=== PATIENT | male | born 1960 | race Caucasian/White ===

== ENCOUNTER 2024-11-07 07:24 | Outpatient (OUT) | payer BC, SELFPAY ==
--- NOTE | 2024-11-07 07:30 | CA_ITS ---
Patient Name: MALISSA HANDY MR#: [id number] : 1960 Exam Date: 11/07/2024 Ordering Doctor: BRITTANY ALFARO ECHOCARDIOGRAM REPORT PROCEDURE: CA ECHO DOPPLER COMPLETE INDICATIONS: Exertional dyspnea, splinter hemorrhage, hypertension COMPARISON: None. DESCRIPTION: COMPLETE ECHOCARDIOGRAM Real-time transthoracic echocardiography with 2D, M-mode, spectral and color flow Doppler performed. QUALITY: Technical quality was good. LEFT VENTRICLE: Normal chamber size. Normal left ventricular wall thickness. LV EF: Global left ventricular systolic function is normal; visually estimated ejection fraction is 55 to 60%. No obvious wall motion abnormalities. DIASTOLIC: Normal diastolic function. ATRIAL SEPTUM: Visually appears intact. LEFT ATRIUM: Normal chamber size. RIGHT ATRIUM: Normal chamber size. RIGHT VENTRICLE: Normal chamber size. Normal right ventricular systolic function. TRICUSPID VALVE: Normal mobility and thickness. No stenosis with trivial regurgitation. No evidence of pulmonary hypertension. RVSP 33 mmHg MITRAL VALVE: Normal mobility and thickness. No evidence of mitral valve stenosis. There is no mitral annular calcification. No mitral regurgitation. AORTIC VALVE: Normal trileaflet appearance. No visible sclerosis. Normal leaflet mobility. No evidence of aortic valve stenosis. No aortic regurgitation. AORTIC ROOT: Normal diameter and appearance. Ascending aorta is normal in size. PULMONIC VALVE: Normal thickness and mobility. No stenosis. No regurgitation. PERICARDIUM: No evidence of pericardial effusion. IVC: Collapses with inspirations. IVC is dilated (2.4 cm). CONCLUSION: 1. Global left ventricular systolic function is normal; visually estimated ejection fraction is 55 to 60% 2. Normal right ventricular size and systolic function 3. Normal diastolic function 4. The left atrium is normal in size 5. No significant valvular abnormalities Adult Echocardiography Procedure Report Left Ventricle LVEDD (3.7 - 5.6 cm): 4.16 cm LVESD (2.2 - 4.0 cm): 2.89 cm LVIVS thickness (0.6 - 1.2 cm): 0.87 cm LVPW thickness (0.5 - 1.0 cm): 1.00 cm e': 0.14 m/s E - e': 5.89 LVOT Max Gradient: 4.69 mm[Hg] LVOT Area (cm2): 1.08 m/s Peak Velocity (LVOT): 1.08 m/s Mean Velocity (LVOT): 0.73 m/s LVOT Diameter 2.05 cm Left Atrium LA Volume Index (2D A2C): 27.10 ml/m2 Left Atrium Systolic Dimension: 3.47 cm Mitral Valve MV E to A Ratio: 0.82 Mitral Valve A-Wave Peak Velocity: 0.97 m/s Mitral Valve E-Wave Peak Velocity: 0.80 m/s Right Ventricle Aorta AO Root Diam: 3.42 cm Ascending Ao Diam: 2.96 cm Aortic Valve AoV Area (Peak Beto): 2.83 cm2, 2.83 cm2 AoV Area (VTI): 2.45 cm2, 2.45 cm2 Peak Velocity(Antegrade Flow): 1.26 m/s Peak Gradient(Antegrade Flow): 6.37 mm[Hg] Mean Velocity(Antegrade Flow): 0.86 m/s Mean Gradient(Antegrade Flow): 3.47 mm[Hg] Velocity Time Integral: 27.44 cm Tricuspid Valve Peak Velocity (Regurgitant Flow): 2.51 m/s Pulmonic Valve Mean Gradient: 1.83 mm[Hg] Mean Velocity: 0.64 m/s Peak Velocity: 0.96 m/s, 1.03 m/s Peak Gradient: 4.26 mm[Hg], 3.68 mm[Hg] Right Atrium Right Atrium Systolic Pressure: 46.45 ml, 46.45 ml Dictated by: Betzy Villalobos M.D. on 11/07/2024 at 13:30 Approved by: Betzy Villalobos M.D. on 11/07/2024 at 13:32
== END 2024-11-07 07:25 | disposition home or self-care (01) ==
LOC: CARD 07:24
PROVIDERS: PCP Family Medicine; Visit Provider Family Medicine
DX: R06.09 Other forms of dyspnea (principal); L60.8 Other nail disorders; E78.2 Mixed hyperlipidemia; E03.8 Other specified hypothyroidism; E07.81 Sick-euthyroid syndrome; K59.89 Other specified functional intestinal disorders; E23.3 Hypothalamic dysfunction, not elsewhere classified; E27.9 Disorder of adrenal gland, unspecified; E27.49 Other adrenocortical insufficiency; J45.40 Moderate persistent asthma, uncomplicated
CPT/HCPCS: 93306

== ENCOUNTER 2025-06-27 23:56 | Emergency (ER) | payer BC, SELFPAY ==
--- OUTSIDE RECORDS SUMMARY | 2025-06-19 08:00 | XMS_ITS | Encounter Summary ---
Author Organization [facility] Address [address] [facility] [place] [address] Care Team Providers Care Substitute Teacher Name Role Phone Deejay Cooper DO Primary Care Provider + [phone] AllisonDeejay DO Unavailable [phone] AllisonDeejay DO Unavailable [phone] Reason for Visit * Consultation (Routine) - Authorized Specialty Diagnoses / Procedures Referred By Contac t Referred To Contact Physical Therapy Diagnoses Left shoulder pain, unspecified chronicity Procedures [place] OFFICE/OUTPATIENT [facility] 60 MINUTES Mike López DO [address] [place] [address] Phone: tel: fax: Marla Lew PT Referral ID Status Reason Start Date Expiration Date Visits Requested Visits Authorized [id number] Authorized Consult and Treat 06/09/2025 09/30/2025 12 12 Encounter Details Date Type Department Care Team (Late st Contact Info) Description 06/19/2025 8:00 AM EDT Treatment [facility] [address] [facility] [address] [place] [phone] Nathanael Prescott PTA Left shoulder pain, unspecified chronicity (Primary Dx) Social History Tobacco Use Types Packs/Day Years Used Date Smoking Tobacco: Never Smokeless Tobacco: Never Alcohol Use Standard Drinks/Week Comments Yes 7 (1 standard drink = 0.6 oz pur e alcohol) caffeine: coffee, tea B1300 Health Literacy Answer Date Recor ded How often do you need to hav e someone help you when you read instructions, pamphlets, or other written material from your doctor or pharmacy? Never 07/25/2024 Social Connection and Isolat ion Panel [NHANES] Answer Date Recorded In a typical week, how many times do you talk on the phone with family, friends, or neighbors? Patient declined 07/25/2024 How often do you get togethe r with friends or relatives? Patient declined 07/25/2024 How often do you attend [facility] or faith services? More than 4 times per year 07/25/2024 Do you belong to any clubs o r organizations such as episcopal groups, unions, fraternal or athletic groups, or school groups? Yes 07/25/2024 Attends Club or Organization Meetings Not on nate e 07/25/2024 Are you , , di vorced, , never , or living with a partner? 07/25/2024 AUDIT-C Answer Date Recorded Q1: How often do you have a drink containing alcohol? 4 or more times a week 07/25/2024 Q2: How many drinks containi ng alcohol do you have on a typical day when you are drinking? 1 or 2 Q3: How often do you have si x or more drinks on one occasion? Never 07/25/2024 Overall Financial Resource Strain (CARDIA) Answe r Date Recorded How hard is it for you to pa y for the very basics like food, housing, medical care, and heating? Not hard at all 07/25/2024 PHQ-2 Answer Date Recorded Patient Health Questionnaire-2 Score 0 04/08/2025 [facility] - Occupational Stress Questionnaire Answer Date Recorded Do you feel stress - tense, restless, nervous, or anxious, or unable to sleep at night because your mind is troubled all the time - these days? To some extent 07/25/2024 Exercise Vital Sign Answer Date Recorde d On average, how many days pe r week do you engage in moderate to strenuous exercise (like a brisk walk)? 2 days 07/25/2024 On average, how many minutes do you engage in exercise at this level? 30 min 07/25/2024 Hunger Vital Sign Answer Date Recorded Within the past 12 months, y ou worried that your food would run out before you got the money to buy more. Never true 07/25/20 24 Within the past 12 months, t he food you bought just didn't last and you didn't have money to get more. Never true 07/25/2024 PRAPARE - Transportation Answer Date Re corded In the past 12 months, has l ack of transportation kept you from medical appointments or from getting medications? No 07/02 In the past 12 months, has l ack of transportation kept you from meetings, work, or from getting things needed for daily living? No 07/25/2024 Housing Stability Vital Sign Answer Raymundo e Recorded In the last 12 months, was t here a time when you were not able to pay the mortgage or rent on time? No 07/25/2024 Number of Times Moved in the Last Year Not on fi le 07/25/2024 At any time in the past 12 m [facility], were you homeless or living in a residential (including now)? No 07/25/2024 Sex and Gender Information Value Date Recorded Sex Assigned at Not on file Legal Sex Male 6:47 PM EDT Gender Identity Male 05/07/2023 8:14 AM EDT Sexual Orientation Not on file documented as of this encounter Progress Notes * Nathanael Prescott, BRIDGETT - 06/19/2025 8:00 AM EDT Images from the original note were not included. Physical Therapy Treatment Visit Patient Name: David Lopez Today's Date: 06/19/2025 Encounter Diagnoses Name Primary? Left shoulder pain, unspecified chronicity Yes Visit number: 2 Timed Code Treatment Minutes: 38 minutes Total Treatment Time: 38 minutes Time In: 0800 Time Out: 0838 History: Pt underwent surgery for left shoulder arthroscopy, arthroscopic biceps tenodesis, debridement, and subacromial decompression on 05/22/2025 . Pt states compliant with use of sling. No longerusing abductor pillow. Pt states pain has been manageable. Doing pendulums at home. Taking Tylenol as needed. Also takes Lyrica for other reasons. Returned to work yesterday. Concerned with current ce rvical issues and how they may be effected with PT for left shoulder. Precautions: Stuart, 2 prior neck surgeries with last 2 years ago Subjective: left shoulder is doing well. is helping doing PROM at home. Wears sling when out in public. Pain: 3-01/08 Objective: PT Evaluation (06/09/2025) LEFT SHOULDER AROM: not tested PROM: 130 degrees flexion, 118 degrees abduction, 61 degrees ER; full elbow flexion and extension Strength: not tested Palpation: min to mod tenderness left ant shoulder and bicep region Special Test: N/A Treatment: Education: HEP education with demonstration, Educated on Eval Findings and POC Manual Therapy: (8 minutes) Passive ROM and gentle Joint mobilization to left shoulder in supine. Soft Tissue Mobilization, Myofascial Release, Muscle Energy Technique, Neural Mobilization, Myofascial Cupping, Dry Needling, IASTM, and Scar mobilization as needed. Therapeutic Exercise: (30 minutes) Strength, Endurance, Flexibility, ROM, HEP, Neural Mobilization,Power, and Core Stability as needed. Pt performed and instructed in home program of AAROM in supine/standing, and Mild isometrics (keeping ER/IR in neutral); written instructions and pictures issued with good pt understanding. Therapeutic Activity: Exercises to improve dynamic activities, functional tasks, functional mobility to return to prior activity level as needed. Neuromuscular re-education: Balance Training, Muscle Facilitation, Dynamic Stability, Core Stabilization, and Blood Flow Restriction Training (BFRT) as needed. Modalities: Heat, Ice, Electrical Stimulation, Ultrasound, Cervical Mechanical Traction, Lumbar Mechanical Traction, Iontophoresis, and Fluidotherapy as needed. Assessment: PROM supine: flex 150, abd 170, ER 80, IR 90 Pt is 64 y/o male with recent left shoulder surgery. Pt is compliant with use of sling and performing home program. Tolerates PROM to left shoulder well; Introduced AAROM for shoulder in supine and standing. Active elbow and forearm performed. Pt is progressing well within protocol. He understands progressions and HEP is updated with handoutprovided. will benefit from further PT. Pt is scheduled for return at 6 weeks for resistive elbow flexion. Outcome Measure: Upper Extremity Functional Index (UEFI): Rehab Diagnosis: left shoulder pain and weakness, decrease ROM and mobility Short Term Goal: To be met in 2 weeks Goal 1: Pt to be instructed in home exercise program. Asian Studies Professor Goals: To be met in 10 weeks Goal 1: Pt to report independence and compliance with home program. Goal 2: Pt to achieve 140 degrees of left shoulder flexion to assist with overhead reaching. Goal 3: Pt to achieve 120 degrees of left shoulder abduction to assist with grooming hair. Goal 4: Pt to achieve 4+ to 5/5 strength left shoulder in all planes to assist with functional tasks and lifting. Goal 5: Pt to score no less than 65/80 on UEFI indicating improved QOL. Pt will benefit from skilled PT for 1-2x/week from 06/09/2025 to 09/01/2025 to address the above impairments. I hereby deem this POC medically necessary. Please sign below. Date: Cosigned by Marla Lew PT at 06/22/2025 6:14 PM EDT documented in this encounter Plan of Treatment Upcoming Encounters Date Type Department Care Team (Late st Contact Info) Description 07/03/2025 8:00 AM EDT Treatment [facility] [address] [facility] [address] [place] [address] Nathanael Prescott PTA 07/10/2025 8:00 AM EDT Office Visit [facility] [address] [facility] [address] [place] [address] Santhosh Marte MD [address] [facility] [address] [place] [address] [place] [address] [id number] 07/14/2025 8:00 AM EDT Office Visit [facility] [address] [place] [address] [place] [address] Mike López, DO [address] [facility] [place] [address] 07/17/2025 8:00 AM EDT Treatment [facility] [address] [place] [address] [place] [address] Nathanael Prescott PTA 07/24/2025 11:40 AM EDT Office Visit [facility] [place] [facility] [address] [place] [address] Deejay Cooper DO [address] [place] [address] documented as of this encounter Visit Diagnoses Diagnosis Left shoulder pain, unspecified chronicity- Primary documented in this encounter Additional Health Concerns Assessment Noted Time PHQ-9 Depression Total Score: 18 023 11:19 AM EDT documented as of this encounter Care Teams Substitute Teacher Relationship Specialty Start Date End Date Deejay Cooper DO [address] [place] [address] PCP - General Family Medicine 02/24/23 Deejay Cooper DO [address] [place] [address] PCP - [employer] 12/30/24 Deejay Cooper DO [address] [place] [address] Family Medicine 02/24/23 documented as of this encounter
--- OUTSIDE RECORDS SUMMARY | 2025-06-19 08:11 | XMS_ITS ---
Author Name Auto Generated Organization [employer] Name Relationship Address Phone HEMEANASTASIA, JOHNNY Next of Kin Unknown [phone] HEMEYER, JOHNNY Next of Kin Unknown [phone] HEMEYER, JOHNNY Next of Kin Unknown [phone] HEMEYER, JOHNNY Next of Kin Unknown [phone] HEMEYER, JOHNNY Next of Kin Unknown [phone] HEMEYER, JOHNNY Next of Kin Unknown [phone] HEMEYER, JOHNNY Next of Kin Unknown [phone] HEMEYER, JOHNNY Next of Kin Unknown [phone] HEMEYER, JOHNNY Next of Kin Unknown [phone] HEMEYER, JOHNNY Next of Kin Unknown [phone] HEMEYER, JOHNNY Next of Kin Unknown [phone] HEMEYER, JOHNNY Next of Kin Unknown [phone] HEMEYER, JOHNNY Next of Kin Unknown [phone] HEMEYER, JOHNNY Next of Kin Unknown [phone] HEMEYER, JOHNNY Next of Kin Unknown [phone] HEMEYER, JOHNNY Next of Kin Unknown [phone] HEMEYER, JOHNNY Next of Kin Unknown [phone] HEMEYER, JOHNNY Next of Kin Unknown [phone] HEMEYER, JOHNNY Next of Kin Unknown [phone] JOHNNY HANDY Next of Kin Unknown [phone] JOHNNY HANDY Next of Kin Unknown [phone] JOHNNY HANDY Next of Kin Unknown [phone] Care Team Providers Care Application Support Manager Name Role Phone VIRGILIO WEISS Referring Unavailable VIRGILIO WEISS Referring Unavailable VIRGILIO WEISS Attending Unavailable YANELY LÓPEZSON A Referring Unavailable CHEPE VELEZ Attending Unavailable WEISSVIRGILIO COBB W Referring Unavailable EVARISTOSEARIADNE RECINOS R Referring Unavailable BORSEARIADNE RECINOS R Referring Unavailable VIRGILIO WEISS Attending Unavailable BRITTANY ALFARO Attending Unavailable CUTLERBRITTANY Referring Unavailable CUTBRITTANY HOLLOWAY Attending Unavailable CUTLERBRITTANY Attending Unavailable VIRGILIO WEISS Attending Unavailable ESTEFANI, MIKE Leung Attending Unavailable ESTEFANI, MIKE A Referring Unavailable CUTBRITTANY HOLLOWAY Attending Unavailable VIRGILIO WEISS Attending Unavailable BROWN, MKIE A Attending Unavailable BROWN, MIKE A Referring Unavailable BROWN, MIKE A Attending Unavailable BROWN, MIKE A Referring Unavailable BROWN, MIKE A Referring Unavailable CELESTINA ESTEVEZ Attending Unavailable BROWN, MIKE A Referring Unavailable GRISEL TONEY Attending Unavailable BROWN, MIKE A Referring Unavailable Brown, DO Mike A Admitting Unavailable Brown, DO Mike A Attending Unavailable Brown, DO Mike A Referring Unavailable Brown, DO Mike A Admitting Unavailable Brown, DO Mike A Attending Unavailable Brown, DO Mike A Referring Unavailable Brown, DO Mike A Admitting Unavailable Brown, DO Mike A Attending Unavailable Brown, DO Mike A Referring Unavailable ELIOT MCDONOUGH Primary Care Unavailable BERNARD GARZA Attending Unavailable JANINE REYES Referring Unavailable PROBLEMS DATE TYPE CONDITION / CODE ATTENDING STATUS [facility] 05/05/2025 Active Neck pain / M54.2(ICD-10) BERNARD GARZA Active [facility] 05/05/2025 Active Cervical radicul opathy / M54.12(ICD-10) BERNARD GARZA Active [facility] 05/05/2025 Active S/P cervical spi nal fusion / Z98.1(ICD-10) BERNARD GARZA Active [facility] 05/05/2025 Active 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 CORROSION CONTROL TECHNICIAN: Elvia Paiz CFA PREOPERATIVE DIAGNOSIS: SLAP tear, outlet impingement, left shoulder POSTOPERATIVE DIAGNOSIS: SLAP tear, outlet impingement, left shoulder PROCEDURE: 1. Examination under anesthesia, left shoulder 2. Left shoulder diagnostic arthroscopy 3. Arthroscopic biceps tenodesis 4. 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 His pain affects his activities of daily living, ability to sleep at night, and quality of life. He also has some underlying issues with his cervical spine. He agreed to proceed with above procedure after a discussion of the risks, benefits, complications, alternatives, and expectations. Please see office notes for further details. PROCEDURE IN DETAIL: The correct operative site was identified and marked in the preoperative holding area. The patient was administered intravenous antibiotics in accordance with SCIP protocol and was also administered 1 g of tranexamic acid intravenously. The patient was transported to the regional block room and administered a regional anesthetic nerve block by the anesthesiologist. I requested the regional block to assist with intraoperative and postoperative pain control. The patient was transported to the operating room, placed supine on the operating room table, and administered general anesthetic. After adequate anesthesia was obtained, the patient was placed into the beachchair position with all bony prominences well-padded. The head was secured in the padded duggan. Surgical timeout was performed with all required personnel present. The operative shoulder was examined and found to have full forward flexion, abduction, internal and external rotation. No instability. The operative upper extremity was prepped and draped in the usual sterile fashion. The forearm was secured in the Spider tenet pneumatic arm duggan. Landmarks were demarcated. The glenohumeral joint was insufflated with 20 mL of injectable saline utilizing a spinal needle inserted posteriorly. A standard posterior portal was made. The arthroscope was introduced into the glenohumeral joint. An anterior portal in the rotator interval was made with outside-in technique using spinal needle localization. A 7 mm cannula was placed at the anterior portal. A hook probe was inserted and a diagnostic arthroscopy was carried out with the findings as noted below: 1. Superior labrum and biceps: Significant fraying to the entire superior labrum extending from 11:00 to 2:00. Detachment of the superior labrum at the biceps anchor extending posteriorly. Biceps tendon was free of intrasubstance splitting or tearing. The tendon was appropriately positioned within the bicipital groove. 2. Labrum: Fraying to the anterosuperior labrum as above. Remainder of the anterior labrum intact. Posterior and inferior labrum intact. 3. Articular surfaces: Humeral head had small area of grade II chondromalacia. Glenoid was free of articular changes. 4. Rotator cuff: Low-grade articular sided fraying to the anterior aspect of the supraspinatus. Subscapularis and infraspinatus intact. 5. Rotator interval was free of pathology. Axillary recess free of loose bodies. No HAGL or RHAGL. The arm was forward elevated, internally rotated, and a posterior drawer force was applied to the humeral head to better visualize the subscapularis footprint. The tendon was entirely intact. The arm was placed back into a neutral position. Attention was then turned to the biceps tenodesis. The Arthrex Loop N Tack tenodesis implant system was utilized. Suture was passed into the joint through the anterior portal above the biceps tendon and then retrieved beneath the biceps tendon. The suture was loaded into the loop and the loop was cinched onto the tendon. The suture was loaded into the passer and placed into the joint once again underneath the biceps tendon. The passer was then pierced through the biceps tendon in its mid substance posterior to the loop and the suture was retrieved. The biceps tendon was then released from the superior labrum with arthroscopic scissors. A punch was used to create a socket for the anchor just above the upper border of the subscapularis insertion site. The suture was loaded into the swivel lock anchor and the anchor was inserted. The end of the biceps tendon was then debulked with the Dyer wand. The superior and anterior labrum were debrided with the motorized shaver. The undersurface of the supraspinatus was debrided with a shaver with punctate bleeding created. The arthroscope was placed into the anterior portal and the glenohumeral joint was examined once again. No new pathology was identified. The arthroscope was removed from the glenohumeral joint and redirected into the subacromial space posteriorly. The 7 mm cannula anteriorly was also redirected into the subacromial space. A lateral portal was established with outside in technique using spinal needle localization. Passport cannula was placed at the lateral portal. There was thickened and inflamed bursal tissue present. Bursectomy was carried out with the Dyer wand and shaver. The undersurface of the acromion was skeletonized with the Dyer. There was spurring present off the anterior acromion. Acromioplasty was performed with the arthroscopic bur. Approximately a bur's width of bone was resected. The rotator cuff was inspected from multiple portals and had mild bursal sided fraying. No partial-thickness or full-thickness tear identified. The shoulder was thoroughly irrigated. All arthroscopic instruments were removed. The portals were closed with 4-0 nylon. Dressing consisting of bacitracin, Adaptic, 4 x 4's, Tegaderms was applied. The patient was reversed from anesthesia having tolerated the procedure well. He was placed into an arm sling and transported to the recovery room in good condition. Sponge and needle counts are correct. No specimen, minimal blood loss, no complications. The case was clean and elective. Mike López D.O. Result Comment: Electronical ly Signed By: Mike López DO.melissa\Date and Time Signed: 05/22/25 11:49 EDT PROGRESS NOTE-PHYSICIAN Observed: 2024 11:17 AM Status: F Source: [facility] Progress Note-Physician Patient: DAVID HANDY Age: 64 years Sex: Male : 1960 Associated Diagnoses: None Author: Ramone Estes Jr., DO Postoperative Information Postoperative disposition: Postoperative disposition: Home. Optimetrix number: Optimetrix number [id number]. Anesthetic utilized: General. Physical Examination Vital Signs 05/22/2025 10:27 EDT Heart Rate Monitored 72 bpm SpO2 96 % 05/22/2025 10:25 EDT Systolic Blood Pressure 133 mmHg Diastolic Blood Pressure 79 mmHg Mean Arterial Pressure, Cuff 97 mmHg 05/22/2025 10:15 EDT Temperature Temporal Artery 36.3 DegC Heart Rate Monitored 75 bpm Respiratory Rate Monitored 18 br/min Systolic Blood Pressure 137 mmHg Diastolic Blood Pressure 84 mmHg Blood Pressure Location Right arm Mean Arterial Pressure, Cuff 102 mmHg SpO2 94 % 05/22/2025 10:10 EDT SpO2 95 % 05/22/2025 10:10 EDT Heart Rate Monitored 75 bpm Respiratory Rate Monitored 18 br/min 05/22/2025 10:10 EDT Systolic Blood Pressure 134 mmHg Diastolic Blood Pressure 78 mmHg Blood Pressure Location Right arm Mean Arterial Pressure, Cuff 97 mmHg 05/22/2025 10:05 EDT SpO2 95 % 05/22/2025 10:05 EDT Heart Rate Monitored 78 bpm Respiratory Rate Monitored 16 br/min 05/22/2025 10:05 EDT Systolic Blood Pressure 130 mmHg Diastolic Blood Pressure 74 mmHg Blood Pressure Location Right arm Mean Arterial Pressure, Cuff 93 mmHg 05/22/2025 10:00 EDT Respiratory Rate Monitored 15 br/min 05/22/2025 10:00 EDT SpO2 98 % 05/22/2025 10:00 EDT Heart Rate Monitored 69 bpm 05/22/2025 10:00 EDT Systolic Blood Pressure 129 mmHg Diastolic Blood Pressure 72 mmHg Blood Pressure Location Right arm Mean Arterial Pressure, Cuff 91 mmHg 05/22/2025 9:55 EDT SpO2 97 % 05/22/2025 9:55 EDT Heart Rate Monitored 64 bpm Respiratory Rate Monitored 16 br/min 05/22/2025 9:55 EDT Systolic Blood Pressure 121 mmHg Diastolic Blood Pressure 71 mmHg Blood Pressure Location Right arm Mean Arterial Pressure, Cuff 88 mmHg 05/22/2025 9:50 EDT SpO2 96 % 05/22/2025 9:50 EDT Heart Rate Monitored 68 bpm Respiratory Rate Monitored 15 br/min 05/22/2025 9:50 EDT Systolic Blood Pressure 119 mmHg Diastolic Blood Pressure 68 mmHg Blood Pressure Location Right arm Mean Arterial Pressure, Cuff 85 mmHg 05/22/2025 9:48 EDT Heart Rate Monitored 75 bpm Respiratory Rate Monitored 8 br/min 05/22/2025 9:48 EDT SpO2 97 % 05/22/2025 9:48 EDT Systolic Blood Pressure 120 mmHg Diastolic Blood Pressure 73 mmHg 05/22/2025 9:48 EDT Temperature Temporal Artery 36.3 DegC Blood Pressure Location Right arm Mean Arterial Pressure, Cuff 89 mmHg Pain Assessment: Pain Assessment 05/22/2025 10:15 EDT Primary Pain Location Shoulder Primary Pain Laterality Left Numeric Pain Scale 4 05/22/2025 10:00 EDT Primary Pain Location Shoulder Primary Pain Laterality Left Numeric Pain Scale 3 . General: Awake, Alert, Appropriate. Respiratory: Adequate air exchange, Non-labored. Cardiovascular: Stable, Normal peripheral perfusion. Neurological: Neurologic exam at baseline. No changes.. Assessment Anesthetic outcome No anesthetic complications noted. No nausea/vomiting. Review / Management Condition: Stable. Plan Transfer/Discharge: Transfer/Discharge Discharge when meets criteria ( From PACU to Ambulatory Surgery Unit, and To home ). Result Comment: Electronical ly Signed By: Ramone Estes Jr., DO\.melissa\Date and Time Signed: 05/22/25 11:18 EDT PATIENT EDUCATION - TEXT Observed: 05/22 10:18 AM Status: C Source: [facility] Patient Education - Text [place], [place] [facility] AFTER YOUR SHOULDER ARTHROSCOPY 1. Diet: Begin with a liquid diet and advance to your normal diet as tolerated. 2. Activity: You may remove your sling for bathing and to perform gentle range of motion exercises for the hand, wrist, and elbow. Bend and straighten your elbow and wrist several times per day to minimize stiffness. Keep your elbow in close to your side when performing these exercises. Do not move your shoulder until instructed by your surgeon. Swelling after surgery is normal and this will gradually decrease over time. All sports activities are discouraged, at least until your first post-operative visit at which time we will discuss how and when to resume sports. 3. Driving: Driving is legal. If you are involved in an accident, you must be able to prove that you maintained full control of your vehicle. For this reason, it is advised that you do not drive until your strength returns. You should not operate a vehicle or heavy machinery if you are taking narcotic pain medication. 4. Pain: If pain persists despite rest, elevation, and medication, contact your surgeon. You will be given a prescription for pain medications prior to leaving the hospital. Please inform us of any known drug allergy. If you have any problems with the medication, it should be discontinued and our office notified. The sensation of splashing of fluid inside the joint is not cause for concern. It represents residual fluids from surgery and they will be absorbed. Elevation of the arm and application of an ice pack will minimize swelling and discomfort in the first 48 hours after surgery. 5. Bandage: Soft compression dressing has been applied to your shoulder. This dressing should be comfortable and absorb any leakage of fluid or blood from your operated shoulder. Although the dressing may become moist or blood stained, this is not usually a cause for concern. If this persists, notify your surgeon. You may remove the dressing 48 hours after your surgery. If you have a bandage in your armpit, leave this in place until follow up. Apply betadine and band-aids to the small incisions once or twice daily as needed. 6. Incisions: The portals of entry may be sore and develop bruising over the next several days. The bruising eventually resolves and does not require any special care. Do not apply creams or lotions to your shoulder. Your portals will heal well on their own. 7. Bathing: You may shower 48 hours after surgery. Bathing or soaking in water should be avoided until your first post-operative visit. 8. Precautions: If you develop fever (101 degrees or above), increasing pain (not relieved by rest, elevation, ice, and medication as prescribed), redness or swelling in your shoulder or arm, please contact the office or the hospital. If you notice increased drainage from the operative portals after the third day, this should also be reported. 9. Return Visit: Your first post-operative follow-up appointment is generally between 7 and 14 days after discharge from the hospital. You will be given an appointment card with your appointment information. Do not hesitate to call the office or the hospital if any problems or questions arise before your appointment. Mike López DO [facility] [address] [place] [phone] Reviewed: MAIN OR PACU I RECORD Observed: 05/22/20 8:45 AM Status: F Source: [facility] Main OR PACU I Record PACU Phase I Document Type FT Summary Primary Physician: Mike López DO Finalized Date/Time: 05/22/25 10:41:02 Pt. Name: DAVID HANDY/Sex: 1960 Male Med Rec #: [id number] Physician: Mike López DO Financial #: [id number] Pt. Type: A Room/Bed: [place] [address] Admit/Disch: 05/22/25 05:47:31 - Institution: [facility] PACU I FT Pre-Care Text: Identifies barriers to communication and implements measures to provide psychological support Develops individualized plan of care, and ensures continuity of care Maintains patient's dignity and privacy, and maintains patient confidentiality Identifies and reports philosophical, cultural, and spiritual beliefs and values Identifies individual values and wishes concerning care Implements aseptic technique, and administers prescribed antibiotic therapy and immunizing agents as ordered Evaluates postoperative tissue perfusion Implements thermoregulation measures, and monitors body temperature Evaluates postoperative respiratory status Evaluates postoperative cardiac status Evaluates postoperative neurological status Assesses pain control, collaborated in initiating patient-controlled analgesia and implements alternative methods of pain control Verifies allergies, administers prescribed medications and solutions, evaluates response to medications Entry 1 In PACU I 05/22/25 09:48:00 Discharge from PACU 05/22/25 10:18:00 I Outcomes Met? Yes Last Modified By: Silva Javier RN 05/22/25 10:40:44 Post-Care Text: The patient demonstrates knowledge of the expected response to the operative or invasive procedure The patient's care is consistent with the individualized perioperative plan of care The patient's right to privacy is maintained The patient's value system, lifestyle, ethnicity, and culture are considered, respected, and incorporated into the perioperative plan of care The patient participates in decisions affecting his or her perioperative plan of care The patient is free from signs and symptoms of infection The patient has wound/tissue perfusion consistent with or improved from baseline levels established preoperatively The patient is at or returning to normothermia at the conclusion of the immediate postoperative period The patient's respiratory function is consistent with or improved from baseline levels established preoperatively The patient's cardiovascular status is consistent with or improved from baseline levels established preoperatively The patient's cardiovascular status is consistent with or improved from baseline levels established preoperatively The patient demonstrates and/or reports adequate pain control throughout the perioperative period The patient received appropriate medication(s), safely administered during the perioperative period Acuity Level PACU I FT Entry 1 Start Time 05/22/25 09:48:00 Stop Time 05/22/25 10:18:00 Acuity Level Acuity Level I Last Modified By: Silva Javier RN 05/22/25 10:41:00 Finalized By: Silva Javier RN Document Signatures Signed By: Silva Javier RN 05/22/25 10:41 MAIN OR PREOPERATIVE RECORD Observed: 8:45 AM Status: F Source: [facility] Main OR Preoperative Record PreOp Document Type FT Summary Primary Physician: Mike López DO Finalized Date/Time: 05/22/25 08:52:51 Pt. Name: DAVID HANDY/Sex: 1960 Male Med Rec #: [id number] Physician: Mike López DO Financial #: [id number] Pt. Type: A Room/Bed: [place] [address] Admit/Disch: 05/22/25 05:47:31 - Institution: Case Times PreOp FT Pre-Care Text: Verifies consent for planned procedure, identifies individual values and wishes concerning care, includes family members in perioperative teaching Entry 1 Patient Times. In Pre Surgery 05/22/25 06:00:00 Out Pre Surgery 05/22/25 08:12:00 Outcomes Met? Yes Last Modified By: Jake Ortega Ii 05/22/25 08:52:49 Post-Care Text: The patient participates in decisions affecting his or her perioperative plan of care Finalized By: Jake Ortega Ii Document Signatures Signed By: Jake Ortega Ii 05/22/25 08:52 MAIN OR PACU II RECORD Observed: 025 8:45 AM Status: F Source: [facility] Main OR PACU II Record PACU Phase II Document Type FT Summary Primary Physician: Mike López DO Finalized Date/Time: 05/22/25 11:47:33 Pt. Name: DAVID HANDY/Sex: 1960 Male Med Rec #: [id number] Physician: Mike López DO Financial #: [id number] Pt. Type: A Room/Bed: [facility] Admit/Disch: 05/22/25 05:47:31 - Institution: Case Times PACU II FT Pre-Care Text: Identifies barriers to communication and implements measures to provide psychological support and determines knowledge level Develops individualized plan of care, and ensures continuity of care Maintains patient's dignity and privacy, and maintains patient confidentiality Identifies and reports philosophical, cultural, and spiritual beliefs and values Identifies individual values and wishes concerning care administers prescribed antibiotic therapy and immunizing agents as ordered, Evaluates postoperative tissue perfusion Implements thermoregulation measures, and monitors body temperature Evaluates postoperative respiratory status Evaluates postoperative cardiac status Evaluates postoperative neurological status Assesses pain control, collaborated in initiating patient-controlled analgesia and implements alternative methods of pain control Verifies allergies, administers prescribed medications and solutions, evaluates response to medications Entry 1 In PACU II 05/22/25 10:25:00 Discharge from PACU 05/22/25 11:25:00 II Outcomes Met? Yes Last Modified By: Vanessa Quiroz RN 05/22/25 11:47:31 Post-Care Text: The patient demonstrates knowledge of the expected response to the operative or invasive procedure The patient's care is consistent with the individualized perioperative plan of care The patient's right to privacy is maintained The patient's value system, lifestyle, ethnicity, and culture are considered, respected, and incorporated into the perioperative plan of care The patient participates in decisions affecting his or her perioperative plan of care. The patient is free from signs and symptoms of infection The patient has wound/tissue perfusion consistent with or improved from baseline levels established preoperatively The patient is at or returning to normothermia at the conclusion of the immediate postoperative period The patient's respiratory function is consistent with or improved from baseline levels established preoperatively The patient's cardiovascular status is consistent with or improved from baseline levels established preoperatively The patient's neurological status is consistent with or improved from baseline levels established preoperatively The patient demonstrates and/or reports adequate pain control throughout the perioperative period The patient received appropriate medication(s), safely administered during the perioperative period Finalized By: Vanessa Quiroz RN Document Signatures Signed By: Vanessa Quiroz RN 05/22/25 11:47 MAIN OR INTRAOPERATIVE RECORD Observed: 05/22/2025 8:45 AM Status: C Source: [facility] Main OR Intraoperative Recor d IntraOp Document Type FT Summary Primary Physician: Mike López DO Finalized Date/Time: 05/25/25 07:51:34 Pt. Name: DAVID HANDY/Sex: 1960 Male Med Rec #: [id number] Physician: Mike López DO Financial #: [id number] Pt. Type: A Room/Bed: [place] [address] Admit/Disch: 05/22/25 05:47:31 - 05/22/25 11:25:00 Institution: Case Times FT Entry 1 Patient Times In Room 05/22/25 08:14:00 Out Room 05/22/25 09:47:00 Procedure Times Start 05/22/25 08:45:00 Stop 05/22/25 09:39:00 Anesthesia Times Start 05/22/25 08:14:00 Stop 05/22/25 09:47:00 Block Timeout w05/22/25 07:49:00 Anesthesia Last Modified By: Jake Ortega Ii 05/22/25 09:50:56 General Comments: left shoulder block done by LUIS Christianson with GABINO Ortega assisting. Patient vital signs HR of 68 bpm and sp02 97% room air. patient tolerated well. /GABINO batista Case Attendance FT Entry 1 Entry 2 Entry 3 Case Attendee Meghan PENN CRNA, Mike Nath DO, CST, Macie C N. 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 Last Modified By: Jake Ortega Ii, Alfons Ii F Letrondo, Alfons Ii F 05/22/25 09:50:57 05/22/25 09:50:57 05/22/25 09:50:57 Entry 4 Entry 5 Case Attendee KenneylaeishaKuldeep Alfons Ii F Role Performed Scrub - Primary Community Service Director - Primary Time In 05/22/25 08:14:00 05/22/25 08:14:00 Time Out 05/22/25 09:47:00 05/22/25 09:47:00 Procedure SHOULDER ARTHROSCOPY W/ SHOULDER ARTHROSCOPY W/ POSSIBLE REPAIR(Left), POSSIBLE REPAIR(Left), SHOULDER BICEPS SHOULDER BICEPS TENODESIS(Left) TENODESIS(Left) Comments Last Modified By: Jake Ortega Ii, Alfons Ii F 05/22/25 09:50:57 05/22/25 09:50:57 General Comments: Go Hayden from [employer] is in attendance. /GABINO batistaclinical scientist Protocols FT Pre-Care Text: Implements protective measures prior to operative or invasive procedure, confirms identity before the operative or invasive procedure, verifies operative procedure, surgical site, and laterality Entry 1 Procedure(s) SHOULDER ARTHROSCOPY W/ Patient Identity Birthday, ID Band POSSIBLE REPAIR(Left), Verified (select at Check, Patient SHOULDER BICEPS least 2): Participation TENODESIS(Left) Consents / H and P Anesthesia Consent, Operative Site Present Verified H&P, Surgery/Procedure Marking Verified Consent Surgical Site Yes Laterality Verified Yes Verified Procedure Verified Yes Correct Patient Yes Position Verified Availability Equipment, Implant, Prep Dry Yes Verified (If Medication, X-ray Applicable) PreOp Antibiotic Yes Time Out Mitlizbeth DNP, PREPARED FOODS ASSOCIATE, Queen [place], Mike López DO, Chencho GOMEZ, Elvia Yanes, Kuldeep Vidal R, Jake Ortega Ii Time Out Complete 05/22/25 08:44:00 Outcomes Met? Yes Last Modified By: Jake Ortega Ii 05/22/25 08:54:49 Post-Care Text: The patient is free from signs and symptoms of injury caused by extraneous objects Allergy Information FT Pre-Care Text: Verifies allergies Entry 1 Allergies Reviewed? Yes Allergies Reviewed Self/Patient With Outcomes Met? Yes Last Modified By: Jake Ortega Ii 05/22/25 08:54:55 Post-Care Text: The patient received appropriate medication(s) safely administered during the perioperative period Surgical Procedures FT Entry 1 Entry 2 Procedure Description Procedure SHOULDER ARTHROSCOPY W/ SHOULDER BICEPS POSSIBLE REPAIR TENODESIS Modifiers Left Left Surgeon Description LEFT SHOULDER LEFT SHOULDER ARTHROSCOPY, BICEP ARTHROSCOPY, BICEP TENODESIS, SUBACROMIAL TENODESIS, SUBACROMIAL DECOMPRESSION DECOMPRESSION Primary Procedure Yes No Primary Surgeon Mike López DO, DO, Jason A Start 05/22/25 08:45:00 05/22/25 08:45:00 Stop 05/22/25 09:39:00 05/22/25 09:39:00 Anesthesia Type General General Surgical Service Orthopedics Orthopedics Wound Class 1 - Clean 1 - Clean Last Modified By: Jake Ortega Ii, Alfons Ii F 05/22/25 09:50:59 05/22/25 09:50:59 General Case Data FT Pre-Care Text: Classifies surgical wound, implements aseptic technique, initiates traffic control Entry 1 Case Information OR OR 5 FT Case Level Level 4 Wound Class 1 - Clean Specialty Orthopedics ASA Class 3 Preop Diagnosis LEFT SHOULDER SLAPP TEAR Postop Same As Preop Yes Postop Diagnosis LEFT SHOULDER SLAPP TEAR Outcomes Met? Yes Last Modified By: Jake Ortega Ii 05/22/25 08:55:07 Post-Care Text: The patient is free from signs and symptoms of infection Skin Assessment (Pre Procedure) FT Pre-Care Text: Implements protective measures to prevent skin/ tissue injury due to thermal or mechanical sources Evaluates for signs and symptoms of physical injury to skin and tissue Entry 1 Skin Integrity Intact, Burwell, Warm, & Skin Abnormality No Dry Outcomes Met? Yes Last Modified By: Jake Ortega Ii 05/22/25 08:55:14 Post-Care Text: The patient is free from signs and symptoms of injury caused by extraneous objects Patient Positioning FT Pre-Care Text: Identifies physical alterations that require additional precautions for procedure-specific positioning, verifies presence of prosthetics or corrective devices, positions the patient, evaluates the patient for signs and symptoms of injury as a result of positioning Entry 1 Procedure SHOULDER ARTHROSCOPY W/ Body Position Beach Chair POSSIBLE REPAIR(Left), SHOULDER BICEPS TENODESIS(Left) Feet Uncrossed? Yes Left Arm Position Held on Field Right Arm Position Resting at Side Left Leg Position Extended Right Leg Position Extended Positioning Device Safety Strap, Spider Positioner Leg Support, Spider Shoulder Positioner, Padded Armboard Press Points Checked Yes By Meghan PENN, LUIS, Queen Reinier, Mike López DO, Wilhelm CST, Macie C, Jake Ortega Ii Outcomes Met? Yes Last Modified By: Jake Ortega Ii 05/22/25 08:57:17 Post-Care Text: The patient is free from signs and symptoms of injury related to positioning Patient Care Devices FT Pre-Care Text: Implements protective measures to prevent skin/ tissue injury due to thermal or mechanical sources Entry 1 Entry 2 Entry 3 Equipment Type ARTHREX GENERATOR UNIT ARTHREX DUALWAVE MISTRAL FORCED AIR IRRIGATION PUMP WARMING SYSTEM UNIT Equipment Number m5 Equipment Setting 43 c/high Outcomes Met? Yes Yes Yes Last Modified By: Jake Ortega Ii, Alfons Ii F Letrondo, Alfons Ii F 05/22/25 08:58:22 05/22/25 08:58:22 05/22/25 08:58:22 Entry 4 Entry 5 Entry 6 Equipment Type MONITOR CHARGE SURGERY ORTHO ARTHREX ABRADER SHOULDER TABLE SYSTEM Equipment Number Equipment Setting Outcomes Met? Yes Yes Yes Last Modified By: Jake Ortega Ii, Alfons Ii F Letrondo, Alfons Ii F 05/22/25 08:58:22 05/22/25 08:58:22 05/22/25 08:58:22 Entry 7 Entry 8 Entry 9 Equipment Type SONOSITE ULTRASOUND UNIT SPIDER/TRIMANO ARM VENA FLOW UNIT Equipment Number Equipment Setting Outcomes Met? Yes Yes Yes Last Modified By: Jake Ortega Ii, Alfons Ii F Letrondo, Alfons Ii F 05/22/25 08:58:22 05/22/25 08:58:22 05/22/25 08:58:22 Entry 10 Equipment Type VIDEO SYSTEM Equipment Number Equipment Setting Outcomes Met? Yes Last Modified By: Jake Ortega Ii 05/22/25 08:58:22 Post-Care Text: The patient is free from signs and symptoms of injury caused by extraneous objects Transport To OR FT Pre-Care Text: Transports according to individual needs. Evaluates for signs and symptoms of skin and tissue injury as a result of transfer or transport Entry 1 Via Cart By Jake Ortega Ii Safety Precautions Side Rails Up Outcomes Met? Yes Last Modified By: Jake Ortega Ii 05/22/25 08:58:32 Post-Care Text: The patient is free from signs and symptoms of injury related to transfer/transport Counts Verification FT Pre-Care Text: Performs required counts Entry 1 Entry 2 Procedure(s) SHOULDER ARTHROSCOPY W/ SHOULDER ARTHROSCOPY W/ POSSIBLE REPAIR(Left), POSSIBLE REPAIR(Left), SHOULDER BICEPS SHOULDER BICEPS TENODESIS(Left) TENODESIS(Left) Type Initial Final Items Sponges, Sharps Sponges, Sharps Status Correct Correct Time 05/22/25 08:15:00 05/22/25 09:37:00 By Kuldeep Vidal, Kuldeep Vidal, Jake Ortega Ii, Alfons Ii F Outcomes Met? Yes Yes Last Modified By: Jake Ortega Ii, Alfons Ii F 05/22/25 08:59:01 05/22/25 09:37:09 Post-Care Text: The patient is free from signs and symptoms of injury caused by extraneous objects Skin Prep FT Pre-Care Text: Performs skin preparations Entry 1 Procedure SHOULDER ARTHROSCOPY W/ Prep Area left shoulder to entire POSSIBLE REPAIR(Left), arm including hand SHOULDER BICEPS TENODESIS(Left) Prep Agents Chloraprep/Dry Prior to Start Dry Time 05/22/25 08:36:00 Draping Stop Dry Time 05/22/25 08:39:00 Hair Removal Methods Not Indicated By Jake Ortega Ii Outcomes Met? Yes Last Modified By: Jake Ortega Ii 05/22/25 08:59:41 Post-Care Text: The patient is free from signs and symptoms of infection Departure From OR FT Pre-Care Text: Transports according to individual needs. Evaluates for signs and symptoms of skin and tissue injury as a result of transfer or transport. Entry 1 Via Cart Safety Precautions Safety Strap, Side Rails Up PostOp Destination PACU Transported By Jake Ortega Ii Patient Status Stable Skin. Condition Intact, Burwell, Warm, & Description LEFT SHOULDER INCISIONS Dry Airway Maintenance Oxygen in Use? Yes Airway Device Simple Mask Flow Rate 8 L/min Outcomes Met? Yes Last Modified By: Jake Ortega Ii 05/22/25 09:51:47 Post-Care Text: The patient is free from signs and symptoms of injury related to transfer/transport General Comments: HANDOFF REPORT GIVEN TO BERRY PLANTER (SILVA). /GABINO BATISTA Dressing/Packing FT Pre-Care Text: Administers care to wound sites Entry 1 Type Dressing, Items DRESSING ADAPTIC 3 X 8 Immobilization Devices Site and Details left shoulder incision Outcomes Met? Yes sutured. adaptic with bacitracin, 4x4, and tegaderm for dressing Last Modified By: Jake Ortega Ii 05/22/25 09:00:19 Post-Care Text: The patient is free from signs and symptoms of infection Medication Administration FT Pre-Care Text: Verifies allergies, administers prescribed medications and solutions, administers prescribed antibiotic therapy and immunizing agents as ordered, evaluates response to medications Administers prescribed medications and solutions Entry 1 Route of Admin Field Expiration Date Yes Verified Outcomes Met? Yes Last Modified By: Jake Ortega Ii 05/22/25 09:00:33 Post-Care Text: The patient received appropriate medication(s) safely administered during the perioperative period For Jacinto-Mckenzie please see scanned medication reconcilliation form for medications used at the field during the procedure. Implant Log FT Pre-Care Text: Records devices implanted during the operative or invasive procedure Entry 1 Procedure SHOULDER ARTHROSCOPY W/ Implant/Explant Implant POSSIBLE REPAIR(Left), SHOULDER BICEPS TENODESIS(Left) Implant Identification FT Description knotless BC loop n tack Lot Number [id number] tenodesis implant system Camp Director arthrex Catalog ???# [id number] Size 4.75 Expiration Date 11/28/28 Usage Data FT Implant Site Shoulder L Quantity 1 Implanted By Mike López DO Biological Implants Outcomes Met? Yes Last Modified By: Jake Ortega Ii 05/22/25 09:03:37 Post-Care Text: The patient is free from signs and symptoms of injury caused by extraneous objects Temperature Control Entry 1 Temperature Control BLANKET MISTRAL AIR Quantity 1 Aid PLUS LOWER BODY Fluid/Alberta Unit Mistral warming system Setting 43 c/high Body Site Lower anterior torso Last Modified By: Jake Ortega Ii 05/22/25 09:01:11 Sign Out FT Entry 1 Before Patient Leaves OR Nurse verbally Yes Nurse verbally Yes confirms with the confirms with the team the name of team that the procedure(s) instrument, sponge, recorded and needle counts are correct (or N/A) Nurse verbally n/a Nurse verbally Yes confirms with the confirms with the team how the team whether there specimen is labeled are any equipment (including patient problems to be name), if applicable addressed Sign Out Complete 05/22/25 09:36:00 Last Modified By: Jake Ortega Ii 05/22/25 09:36:58 Case Comments <None> Finalized By: Myra Gomez CST Document Signatures Signed By: Jake Ortega Ii 05/22/25 09:51 Myra Gomez CST 05/25/25 07:51 Unfinalized History Date/Time Username Reason for Unfinalizing Freetext Reason for Unfinalizing 05/25/25 07:46 [id number] Other - See Nurses Notes 05/25/25 Chart opened to review and send charges LRoth CSFA PROCEDURAL Observed: 05/22/2025 7:53 AM Status: F Source: [facility] Procedural Patient: DAVID HANDY Age: 64 years Sex: Male : 1960 Associated Diagnoses: None Author: Meghan PENN CRNA, Queen N. Procedure Nerve Block Block Type: Interscalene block. Laterality: Left. Informed consent for anesthesia management: Anesthesia options discussed including nerve block, Description of the procedure, risks, benefits, and alternatives was provided, The patient's questions were addressed. Time out: Confirmed correct patient, procedure and site. Time: Date/Time 05/22/2025 07:48:00. Indication: Block for postoperative pain management as requested by surgeon. Anesthesia Method: IV Sedation with monitored anesthesia care, The patient remained awake and able to interact in a meaningful way throughout the procedure. Preparation: The patient was placed in the following position Supine, Continuous pulse oximetry applied, Using maximal sterile barrier technique per current [facility] guidelines including hand hygeine, Guidance (Ultrasound used to identify anatomical landmarks, Using sterile gel and probe covers, Permanent image retained), The site was prepped with ChloraPrep. Procedure: Anesthetic Agent 20cc of 0.5% Ropivicaine with 4mg PF decadron, Catheter size 22G, Pajunk, Needle was inserted without pain or parasthesia in the conscious patient, Number of attempts 1, Negative attempt at aspiration for blood, Medial and lateral spread of the anesthestic was observed, Periodic negative attempts at aspiration of blood were made as the local was injected, No pain or parathesia were elicited with injection of the anesthetic in the conscious patient, It was idetified that the correct anesthetic agent was administered to the correct site. Complications: The patient tolerated the procedure as expected, Procedure completed by Queen Meghan CRNA under my supervision. OUTPATIENT SURGERY DISCHARGE INSTRUCTION Observed: 05/22/2025 7:29 AM Status: C Source: [facility] Outpatient Surgery Discharge Instruction [place] [id number] Patient Discharge Instructions PERSON INFORMATION Name: DAVID HANDY Date of : 1960 Current Date: 05/22/2025 07:29:32 PHYSICIANS Admitting Physician: Mike López DO Discharge Diagnosis: ELIZABETHDAVID OCONNOR has been given the following list of follow-up instructions, prescriptions, and patient education materials: IF UNABLE TO CONTACT YOUR PHYSICIAN AND YOU FEEL IT IS AN EMERGENCY, GO TO THE NEAREST EMERGENCY ROOM OR CALL 911 [address], have received the attached patient education materials/instructions and have verbalized understanding: May we do a follow up call? Yes No I was present when discharge instructions were given Patient Signature Date Clinican/Nurse Signature Date Follow up: Pharmacy Information: You may receive a survey from [employer] asking you to rate your care experience. Your feedback is important and will help us understand what we do well and how we can improve the quality of care we provide to you, your loved ones and our community. It???s an honor to serve you. Thank you for choosing [facility] HERE ARE THE MEDICATION CHANGES THAT OCCURRED DURING YOUR HOSPITAL STAY New Medications [id number], [address], [place] [id number], [phone] acetaminophen (acetaminophen 500 mg Tab) 1 Tablets By Mouth every 4 hours. Refills: 0. celecoxib (CeleBREX 200 mg Cap) 1 Capsules By Mouth every day. start after finishing ketorolac. Refills: 0. docusate (Colace 100 mg Cap) 1 Capsules By Mouth 2 times a day as needed for constipation. Refills: 0. ketorolac (ketorolac 10 mg Tab) 1 Tablets By Mouth every 8 hours for 3 Days. Refills: 0. oxycodone (oxyCODONE 5 mg Tab) 1-2 tab(s) Oral q4hr; as needed Breakthrough Pain. Refills: 0. Medications to Continue with No Changes Other Medications albuterol (Ventolin HFA 90 mcg/inh Aerosol-Adpt) 1 Puffs Inhalation Once as needed for wheezing. anastrozole (anastrozole 1 mg Tab) 1 Tablets By Mouth every day. hypotestosteronemia. aspirin (aspirin 81 mg Oral EC Tab) 1 Tablets By Mouth every day. azelastine nasal (azelastine nasal 0.15% spray) 1 Sprays Nasal Inhalation 2 times a day as needed for allergy symptoms. buPROPion (buPROPion 150 mg/24 hours XL Tab) 1 Tablets By Mouth every 24 hours. only during the winter for seasonal depression. carisoprodol (carisoprodol 350 mg Tab) 1 Tablets By Mouth every day. cholecalciferol (Vitamin D3 5000 intl units oral capsule) 1 Capsules By Mouth every day. with food. clomiPHENE (clomiPHENE 50 mg Tab) 0.5 tab By Mouth Sunday & Sunday. hypotestosteronemia. dehydroepiandrosterone (dehydroepiandrosterone 50 mg oral tablet) 1 Tablets By Mouth every day. hypotestosteronemia. gemfibrozil (gemfibrozil 600 mg Tab) 1 Tablets By Mouth 2 times a day. hydrocortisone (hydrocortisone 10 mg Tab) 1 Tablets By Mouth 2 times a day. mqxatnbpfbtx-elxsqwqsx-kazfror axis. liothyronine (liothyronine 5 mcg Tab) 0.5 tab By Mouth 2 times a day. losartan (losartan 100 mg Tab) 1 Tablets By Mouth every day. magnesium glycinate (magnesium glycinate 100 mg oral capsule) 2 Capsules By Mouth every day. meclizine (meclizine 12.5 mg Tab) 1 Tablets By Mouth 3 times a day as needed for dizziness. nebivolol (nebivolol 2.5 mg oral tablet) 1 Tablets By Mouth every day. niacin (niacin 500 mg oral capsule, extended release) 1 Capsules By Mouth once a day (at bedtime). omega-3 polyunsaturated fatty acids (omega-3 polyunsaturated fatty acids 425 mg oral tablet, chewable) 2 Tablets By Mouth every day. orphenadrine (orphenadrine 100 mg ER Tab) 1 Tablets By Mouth 2 times a day. pregabalin (pregabalin 50 mg Cap) 1 Capsules By Mouth 3 times a day. spironolactone (spironolactone 25 mg Tab) 1 Tablets By Mouth 2 times a day. PRN for vertigo. suzetrigine (Journavx 50 mg oral tablet) 1 Tablets By Mouth every 12 hours. 50mg by mouth every 12hrs for 14 days for the first dose, take 2 tablets 100 mg on an empty stomach at least 1hr before or 2hr after food. starting 12hrs after the inital dose, take 1 tablet 50mg every 12hrs with or without food. thyroid desiccated (thyroid desiccated 30 mg Tab) 1 Tablets By Mouth every day. vitamin E (vitamin E 100 intl units oral capsule) 1 Capsules By Mouth every day. zolpidem (zolpidem 10 mg sublingual tablet) 1 Tablets Sublingual once a day (at bedtime) as needed for sleep. No Longer Take the Following Medications tramadol (traMADOL 50 mg Tab) 1 Tablets By Mouth every 4 hours as needed for pain. PATIENT EDUCATION INFORMATION Instructions: [place], [place] [facility] AFTER YOUR SHOULDER ARTHROSCOPY 1. Diet: Begin with a liquid diet and advance to your normal diet as tolerated. 2. Activity: You may remove your sling for bathing and to perform gentle range of motion exercises for the hand, wrist, and elbow. Bend and straighten your elbow and wrist several times per day to minimize stiffness. Keep your elbow in close to your side when performing these exercises. Do not move your shoulder until instructed by your surgeon. Swelling after surgery is normal and this will gradually decrease over time. All sports activities are discouraged, at least until your first post-operative visit at which time we will discuss how and when to resume sports. 3. Driving: Driving is legal. If you are involved in an accident, you must be able to prove that you maintained full control of your vehicle. For this reason, it is advised that you do not drive until your strength returns. You should not operate a vehicle or heavy machinery if you are taking narcotic pain medication. 4. Pain: If pain persists despite rest, elevation, and medication, contact your surgeon. You will be given a prescription for pain medications prior to leaving the hospital. Please inform us of any known drug allergy. If you have any problems with the medication, it should be discontinued and our office notified. The sensation of splashing of fluid inside the joint is not cause for concern. It represents residual fluids from surgery and they will be absorbed. Elevation of the arm and application of an ice pack will minimize swelling and discomfort in the first 48 hours after surgery. 5. Bandage: Soft compression dressing has been applied to your shoulder. This dressing should be comfortable and absorb any leakage of fluid or blood from your operated shoulder. Although the dressing may become moist or blood stained, this is not usually a cause for concern. If this persists, notify your surgeon. You may remove the dressing 48 hours after your surgery. If you have a bandage in your armpit, leave this in place until follow up. Apply betadine and band-aids to the small incisions once or twice daily as needed. 6. Incisions: The portals of entry may be sore and develop bruising over the next several days. The bruising eventually resolves and does not require any special care. Do not apply creams or lotions to your shoulder. Your portals will heal well on their own. 7. Bathing: You may shower 48 hours after surgery. Bathing or soaking in water should be avoided until your first post-operative visit. 8. Precautions: If you develop fever (101 degrees or above), increasing pain (not relieved by rest, elevation, ice, and medication as prescribed), redness or swelling in your shoulder or arm, please contact the office or the hospital. If you notice increased drainage from the operative portals after the third day, this should also be reported. 9. Return Visit: Your first post-operative follow-up appointment is generally between 7 and 14 days after discharge from the hospital. You will be given an appointment card with your appointment information. Do not hesitate to call the office or the hospital if any problems or questions arise before your appointment. Mike López, DO [facility] [address], [place] [address] Reviewed: Medication Leaflets: INPATIENT PATIENT SUMMARY Observed: 05/02 7:29 AM Status: C Source: [facility] Inpatient Patient Summary [facility] [address], [place] [address] [facility] Clinical Discharge Instructions PERSON INFORMATION Name: DAVID HANDY [facility]#:[id number] PHYSICIANS Admitting Physician: Mike López DO Attending Physician: Mike López DO PCP: BRITTANY ALFARO DO Discharge Diagnosis: Comment: PATIENT EDUCATION INFORMATION Instructions: Jason López - After Your Shoulder Arthroscopy (Custom) Medication Leaflets: Follow up: MEDICATION LIST New Medications [id number], [address], [place] [id number], [phone] acetaminophen (acetaminophen 500 mg Tab) 1 Tablets By Mouth every 4 hours. Refills: 0. celecoxib (CeleBREX 200 mg Cap) 1 Capsules By Mouth every day. start after finishing ketorolac. Refills: 0. docusate (Colace 100 mg Cap) 1 Capsules By Mouth 2 times a day as needed for constipation. Refills: 0. ketorolac (ketorolac 10 mg Tab) 1 Tablets By Mouth every 8 hours for 3 Days. Refills: 0. oxycodone (oxyCODONE 5 mg Tab) 1-2 tab(s) Oral q4hr; as needed Breakthrough Pain. Refills: 0. Medications to Continue with No Changes Other Medications albuterol (Ventolin HFA 90 mcg/inh Aerosol-Adpt) 1 Puffs Inhalation Once as needed for wheezing. anastrozole (anastrozole 1 mg Tab) 1 Tablets By Mouth every day. hypotestosteronemia. aspirin (aspirin 81 mg Oral EC Tab) 1 Tablets By Mouth every day. azelastine nasal (azelastine nasal 0.15% spray) 1 Sprays Nasal Inhalation 2 times a day as needed for allergy symptoms. buPROPion (buPROPion 150 mg/24 hours XL Tab) 1 Tablets By Mouth every 24 hours. only during the winter for seasonal depression. carisoprodol (carisoprodol 350 mg Tab) 1 Tablets By Mouth every day. cholecalciferol (Vitamin D3 5000 intl units oral capsule) 1 Capsules By Mouth every day. with food. clomiPHENE (clomiPHENE 50 mg Tab) 0.5 tab By Mouth Sunday & Sunday. hypotestosteronemia. dehydroepiandrosterone (dehydroepiandrosterone 50 mg oral tablet) 1 Tablets By Mouth every day. hypotestosteronemia. gemfibrozil (gemfibrozil 600 mg Tab) 1 Tablets By Mouth 2 times a day. hydrocortisone (hydrocortisone 10 mg Tab) 1 Tablets By Mouth 2 times a day. momxxekodifu-gxevyrntc-qifejgd axis. liothyronine (liothyronine 5 mcg Tab) 0.5 tab By Mouth 2 times a day. losartan (losartan 100 mg Tab) 1 Tablets By Mouth every day. magnesium glycinate (magnesium glycinate 100 mg oral capsule) 2 Capsules By Mouth every day. meclizine (meclizine 12.5 mg Tab) 1 Tablets By Mouth 3 times a day as needed for dizziness. nebivolol (nebivolol 2.5 mg oral tablet) 1 Tablets By Mouth every day. niacin (niacin 500 mg oral capsule, extended release) 1 Capsules By Mouth once a day (at bedtime). omega-3 polyunsaturated fatty acids (omega-3 polyunsaturated fatty acids 425 mg oral tablet, chewable) 2 Tablets By Mouth every day. orphenadrine (orphenadrine 100 mg ER Tab) 1 Tablets By Mouth 2 times a day. pregabalin (pregabalin 50 mg Cap) 1 Capsules By Mouth 3 times a day. spironolactone (spironolactone 25 mg Tab) 1 Tablets By Mouth 2 times a day. PRN for vertigo. suzetrigine (Journavx 50 mg oral tablet) 1 Tablets By Mouth every 12 hours. 50mg by mouth every 12hrs for 14 days for the first dose, take 2 tablets 100 mg on an empty stomach at least 1hr before or 2hr after food. starting 12hrs after the inital dose, take 1 tablet 50mg every 12hrs with or without food. thyroid desiccated (thyroid desiccated 30 mg Tab) 1 Tablets By Mouth every day. vitamin E (vitamin E 100 intl units oral capsule) 1 Capsules By Mouth every day. zolpidem (zolpidem 10 mg sublingual tablet) 1 Tablets Sublingual once a day (at bedtime) as needed for sleep. No Longer Take the Following Medications tramadol (traMADOL 50 mg Tab) 1 Tablets By Mouth every 4 hours as needed for pain. Comment: PROGRESS NOTE-PHYSICIAN Observed: 2024 7:15 AM Status: F Source: [facility] Progress Note-Physician Patient: DAVID HANDY Age: 64 years Sex: Male : 1960 Associated Diagnoses: None Author: Ramone Estes Jr., DO Preoperative Information Anesthesia Preop Info NPO since midnight Anesthesia history: Patient history: No prior anesthetic problems. Informed consent: Signed by patient. Re-evaluation prior to induction: Initial evaluation reviewed: No significant change. Health Status Allergies: Allergic Reactions (Selected) Severity Not Documented Latex- Itching., Allergies (1) Active Severity Reaction Latex Itching Current medications: (Selected) Inpatient Medications Ordered Lactated Ringers IV Iesha 1000 mL 1,000 mL: 1,000 mL, IV, 150 mL/hr, Routine, Start date 05/22/25 6:00:00 EDT, 6.7 hour(s), Total volume (mL): 1,000, 72.6 kg, 1.87, m2 cefazolin additive + Sodium Chloride 0.9% intravenous solution 50 mL: 2 gm = 1 EA, Powder-Inj, IV Piggyback, PREOP, Routine, Start date 05/22/25 5:45:00 EDT, 100 mL/hr, Infuse over 30 minute(s) tranexamic acid additive + premix generic diluent 100 mL: 1,000 mg = 100 mL, Soln-IV, IV Piggyback, PREOP, Routine, Start date 05/22/25 5:45:00 EDT, 200 mL/hr, Infuse over 30 minute(s) Documented Medications Documented Journavx 50 mg oral tablet: 50 mg = 1 tab(s), Oral, q12hr, 50mg by mouth every 12hrs for 14 days for the first dose, take 2 tablets 100 mg on an empty stomach at least 1hr before or 2hr after food. starting 12hrs after the inital dose, take 1 tablet 50mg every 12hrs with or with... Ventolin HFA 90 mcg/inh Aerosol-Adpt: 1 puff(s), Inhalation, Once for wheezing Vitamin D3 5000 intl units oral capsule: 125 mcg = 1 cap(s), Oral, Daily, with food, Prophylaxis anastrozole 1 mg Tab: 1 mg = 1 tab(s), Oral, Daily, hypotestosteronemia aspirin 81 mg Oral EC Tab: 81 mg = 1 tab(s), Oral, Daily, Blood Thinner azelastine nasal 0.15% spray: 1 spray(s), Nasal, BID for allergy symptoms buPROPion 150 mg/24 hours XL Tab: 150 mg = 1 tab(s), Oral, q24hr, only during the winter for seasonal depression carisoprodol 350 mg Tab: 350 mg = 1 tab(s), Oral, Daily, Spasm clomiPHENE 50 mg Tab: 0.5 tab, Oral, TueThFrSa, hypotestosteronemia dehydroepiandrosterone 50 mg oral tablet: 50 mg = 1 tab(s), Oral, Daily, hypotestosteronemia gemfibrozil 600 mg Tab: 600 mg = 1 tab(s), Oral, BID, High cholesterol hydrocortisone 10 mg Tab: 10 mg = 1 tab(s), Oral, BID, ykdqgoamutok-cprvlrnld-kysnupg axis liothyronine 5 mcg Tab: 0.5 tab, Oral, BID losartan 100 mg Tab: 100 mg = 1 tab(s), Oral, Daily, High blood pressure magnesium glycinate 100 mg oral capsule: 200 mg = 2 cap(s), Oral, Daily, Refills(s) 0, Prophylaxis meclizine 12.5 mg Tab: 12.5 mg = 1 tab(s), Oral, TID, PRN for dizziness nebivolol 2.5 mg oral tablet: 2.5 mg = 1 tab(s), Oral, Daily, High blood pressure niacin 500 mg oral capsule, extended release: 500 mg = 1 cap(s), Oral, Once a day (at bedtime), Prophylaxis omega-3 polyunsaturated fatty acids 425 mg oral tablet, chewable: 850 mg = 2 tab(s), Oral, Daily, Refills(s) 0, Prophylaxis orphenadrine 100 mg ER Tab: 100 mg = 1 tab(s), Oral, BID, Spasm pregabalin 50 mg Cap: 50 mg = 1 cap(s), Oral, TID, Pain spironolactone 25 mg Tab: 25 mg = 1 tab(s), Oral, BID, PRN for vertigo thyroid desiccated 30 mg Tab: 30 mg = 1 tab(s), Oral, Daily, Thyroid traMADOL 50 mg Tab: 50 mg = 1 tab(s), Oral, q4hr, PRN for pain vitamin E 100 intl units oral capsule: = 1 cap(s), Oral, Daily, Prophylaxis zolpidem 10 mg sublingual tablet: 10 mg = 1 tab(s), SubLingual, Once a day (at bedtime), PRN for sleep, Sleep, Home Medications (26) Active anastrozole 1 mg Tab 1 mg = 1 tab(s), Oral, Daily aspirin 81 mg Oral EC Tab 81 mg = 1 tab(s), Oral, Daily azelastine nasal 0.15% spray 1 spray(s), PRN, Nasal, BID buPROPion 150 mg/24 hours XL Tab 150 mg = 1 tab(s), Oral, q24hr carisoprodol 350 mg Tab 350 mg = 1 tab(s), Oral, Daily clomiPHENE 50 mg Tab 0.5 tab, Oral, TueThFrSa dehydroepiandrosterone 50 mg oral tablet 50 mg = 1 tab(s), Oral, Daily gemfibrozil 600 mg Tab 600 mg = 1 tab(s), Oral, BID hydrocortisone 10 mg Tab 10 mg = 1 tab(s), Oral, BID Journavx 50 mg oral tablet 50 mg = 1 tab(s), Oral, q12hr liothyronine 5 mcg Tab 0.5 tab, Oral, BID losartan 100 mg Tab 100 mg = 1 tab(s), Oral, Daily magnesium glycinate 100 mg oral capsule 200 mg = 2 cap(s), Oral, Daily meclizine 12.5 mg Tab 12.5 mg = 1 tab(s), PRN, Oral, TID nebivolol 2.5 mg oral tablet 2.5 mg = 1 tab(s), Oral, Daily niacin 500 mg oral capsule, extended release 500 mg = 1 cap(s), Oral, Once a day (at bedtime) omega-3 polyunsaturated fatty acids 425 mg oral tablet, chewable 850 mg = 2 tab(s), Oral, Daily orphenadrine 100 mg ER Tab 100 mg = 1 tab(s), Oral, BID pregabalin 50 mg Cap 50 mg = 1 cap(s), Oral, TID spironolactone 25 mg Tab 25 mg = 1 tab(s), Oral, BID thyroid desiccated 30 mg Tab 30 mg = 1 tab(s), Oral, Daily traMADOL 50 mg Tab 50 mg = 1 tab(s), PRN, Oral, q4hr Ventolin HFA 90 mcg/inh Aerosol-Adpt 1 puff(s), PRN, Inhalation, Once Vitamin D3 5000 intl units oral capsule 125 mcg = 1 cap(s), Oral, Daily vitamin E 100 intl units oral capsule 1 cap(s), Oral, Daily zolpidem 10 mg sublingual tablet 10 mg = 1 tab(s), PRN, SubLingual, Once a day (at bedtime) , Medications (3) Active Scheduled: (2) ceFAZolin + Sodium Chloride 0.9% Minibag 50 mL 2 gm 1 EA, IV Piggyback, PREOP tranexamic acid + Generic Diluent 100 mL 1,000 mg 100 mL, IV Piggyback, PREOP Continuous: (1) Lactated Ringers 1,000 mL 1,000 mL, IV, 150 mL/hr PRN: (0) Problem list: All Problems Asymmetrical sensorineural hearing loss / SNOMED CT 2309703866 / Confirmed Central hypothyroidism / SNOMED CT 84821652 / Confirmed Cervical disc disease with myelopathy / SNOMED CT 516603662 / Confirmed Cervical disc displacement / SNOMED CT 8224470997 / Confirmed Cervical paraspinal muscle spasm / SNOMED CT 7572846374 / Confirmed Cervical radiculopathy / SNOMED CT 625212436 / Confirmed Chronic fatigue / SNOMED CT 797863672 / Confirmed Chronic insomnia / SNOMED CT 3494250407 / Confirmed Dyslipidemia / SNOMED CT 7715059396 / Confirmed Essential hypertension / SNOMED CT 89833141 / Confirmed Euthyroid sick syndrome / SNOMED CT 048813878 / Confirmed 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 Procedure history: Tonsillectomy and adenoidectomy (546487401). Transposition of RIGHT ulnar nerve at elbow (4215461). Arthroscopy of LEFT knee x2 (749718825). Cervical spinal fusion C5-C7 (928877743). Artificial vertebral disc C3-C4 and C4-C5 (0082676580). Social History Social & Psychosocial Habits Alcohol 05/01/2025 Risk Assessment: No Risk Substance Abuse 05/01/2025 Risk Assessment: Medium Risk Tobacco 05/01/2025 Risk Assessment: No Risk . Physical Examination Vital Signs 05/22/2025 6:17 EDT Heart Rate Monitored 65 bpm Systolic Blood Pressure 142 mmHg HI Diastolic Blood Pressure 84 mmHg Mean Arterial Pressure, Cuff 103 mmHg 05/22/2025 6:17 EDT Blood Pressure Location Left arm 05/22/2025 6:16 EDT Heart Rate Monitored 65 bpm SpO2 98 % 05/22/2025 6:15 EDT Respiratory Rate 16 br/min 05/22/2025 6:15 EDT Temperature Oral 36.6 DegC 05/22/2025 6:14 EDT Systolic Blood Pressure 153 mmHg HI Diastolic Blood Pressure 83 mmHg Mean Arterial Pressure, Cuff 106 mmHg 05/22/2025 5:52 EDT Blood Pressure Location Right arm Airway: Mallampati classification: II (soft palate, fauces, uvula visible). Respiratory: Lungs are clear to auscultation, Respirations are non-labored. Cardiovascular: Regular rhythm. Review / Management Results review: Lab results 05/01/2025 8:11 EDT WBC 4.4 E9/L RBC 4.9 E12/L HGB 15.0 gm/dL Hct 43.3 % MCV 89.2 fL MCH 30.9 pg MCHC 34.7 gm/dL RDW 12.6 % Platelet 202.0 E9/L MPV 8.4 fL Neutro Auto 51.7 % Lymph Auto 30.6 % [place] Auto 7.9 % Eos Auto 9.0 % HI Basophil Auto 0.8 % Neutro Absolute 2.3 E9/L Lymph Absolute 1.3 E9/L [place] Absolute 0.3 E9/L Eos Absolute 0.4 E9/L Basophil Absolute 0.0 E9/L Glucose Lvl 141 mg/dL BUN 22 mg/dL HI Creatinine 1.2 mg/dL eGFR 67 mL/min/1.73 m2 BUN/Creat Ratio 18 Sodium Lvl 138 mmol/L Potassium Lvl 4.4 mmol/L Chloride 104 mmol/L CO2 26 mmol/L AGAP 12 mEq/L Calcium Lvl 10.1 mg/dL . ECG interpretation: SINUS RHYTHM WITH SHORT IA INTERVAL . Plan [place] [employer] (ASA) physical status classification: Class III. Anesthetic Preoperative Plan: Anesthesia General. Regional Interscalene block. Result Comment: Electronical ly Signed By: Ramone Estes Jr., DO\Date and Time Signed: 05/22/25 07:17 EDT HISTORY AND PHYSICAL Observed: 5 7:10 AM Status: F Source: [facility] History and Physical Patient: DAVID HANDY Age: 64 years Sex: Male : 1960 Associated Diagnoses: None Author: Mike López DO Preoperative Information Indication for procedure and diagnosis: L shoulder pain Chief Complaint As above Review of Systems Negative except as mentioned above Health Status Allergies: Allergic Reactions (Selected) Severity Not Documented Latex- Itching. Current medications: (Selected) Inpatient Medications Ordered Lactated Ringers IV Iesha 1000 mL 1,000 mL: 1,000 mL, IV, 150 mL/hr, Routine, Start date 05/22/25 6:00:00 EDT, 6.7 hour(s), Total volume (mL): 1,000, 72.6 kg, 1.87, m2 cefazolin additive + Sodium Chloride 0.9% intravenous solution 50 mL: 2 gm = 1 EA, Powder-Inj, IV Piggyback, PREOP, Routine, Start date 05/22/25 5:45:00 EDT, 100 mL/hr, Infuse over 30 minute(s) tranexamic acid additive + premix generic diluent 100 mL: 1,000 mg = 100 mL, Soln-IV, IV Piggyback, PREOP, Routine, Start date 05/22/25 5:45:00 EDT, 200 mL/hr, Infuse over 30 minute(s) Documented Medications Documented Journavx 50 mg oral tablet: 50 mg = 1 tab(s), Oral, q12hr, 50mg by mouth every 12hrs for 14 days for the first dose, take 2 tablets 100 mg on an empty stomach at least 1hr before or 2hr after food. starting 12hrs after the inital dose, take 1 tablet 50mg every 12hrs with or with... Ventolin HFA 90 mcg/inh Aerosol-Adpt: 1 puff(s), Inhalation, Once for wheezing Vitamin D3 5000 intl units oral capsule: 125 mcg = 1 cap(s), Oral, Daily, with food, Prophylaxis anastrozole 1 mg Tab: 1 mg = 1 tab(s), Oral, Daily, hypotestosteronemia aspirin 81 mg Oral EC Tab: 81 mg = 1 tab(s), Oral, Daily, Blood Thinner azelastine nasal 0.15% spray: 1 spray(s), Nasal, BID for allergy symptoms buPROPion 150 mg/24 hours XL Tab: 150 mg = 1 tab(s), Oral, q24hr, only during the winter for seasonal depression carisoprodol 350 mg Tab: 350 mg = 1 tab(s), Oral, Daily, Spasm clomiPHENE 50 mg Tab: 0.5 tab, Oral, TueThFrSa, hypotestosteronemia dehydroepiandrosterone 50 mg oral tablet: 50 mg = 1 tab(s), Oral, Daily, hypotestosteronemia gemfibrozil 600 mg Tab: 600 mg = 1 tab(s), Oral, BID, High cholesterol hydrocortisone 10 mg Tab: 10 mg = 1 tab(s), Oral, BID, fqbbrxxxwfle-qadxnnesc-lfwwgwr axis liothyronine 5 mcg Tab: 0.5 tab, Oral, BID losartan 100 mg Tab: 100 mg = 1 tab(s), Oral, Daily, High blood pressure magnesium glycinate 100 mg oral capsule: 200 mg = 2 cap(s), Oral, Daily, Refills(s) 0, Prophylaxis meclizine 12.5 mg Tab: 12.5 mg = 1 tab(s), Oral, TID, PRN for dizziness nebivolol 2.5 mg oral tablet: 2.5 mg = 1 tab(s), Oral, Daily, High blood pressure niacin 500 mg oral capsule, extended release: 500 mg = 1 cap(s), Oral, Once a day (at bedtime), Prophylaxis omega-3 polyunsaturated fatty acids 425 mg oral tablet, chewable: 850 mg = 2 tab(s), Oral, Daily, Refills(s) 0, Prophylaxis orphenadrine 100 mg ER Tab: 100 mg = 1 tab(s), Oral, BID, Spasm pregabalin 50 mg Cap: 50 mg = 1 cap(s), Oral, TID, Pain spironolactone 25 mg Tab: 25 mg = 1 tab(s), Oral, BID, PRN for vertigo thyroid desiccated 30 mg Tab: 30 mg = 1 tab(s), Oral, Daily, Thyroid traMADOL 50 mg Tab: 50 mg = 1 tab(s), Oral, q4hr, PRN for pain vitamin E 100 intl units oral capsule: = 1 cap(s), Oral, Daily, Prophylaxis zolpidem 10 mg sublingual tablet: 10 mg = 1 tab(s), SubLingual, Once a day (at bedtime), PRN for sleep, Sleep, Home Medications (26) Active anastrozole 1 mg Tab 1 mg = 1 tab(s), Oral, Daily aspirin 81 mg Oral EC Tab 81 mg = 1 tab(s), Oral, Daily azelastine nasal 0.15% spray 1 spray(s), PRN, Nasal, BID buPROPion 150 mg/24 hours XL Tab 150 mg = 1 tab(s), Oral, q24hr carisoprodol 350 mg Tab 350 mg = 1 tab(s), Oral, Daily clomiPHENE 50 mg Tab 0.5 tab, Oral, TueThFrSa dehydroepiandrosterone 50 mg oral tablet 50 mg = 1 tab(s), Oral, Daily gemfibrozil 600 mg Tab 600 mg = 1 tab(s), Oral, BID hydrocortisone 10 mg Tab 10 mg = 1 tab(s), Oral, BID Journavx 50 mg oral tablet 50 mg = 1 tab(s), Oral, q12hr liothyronine 5 mcg Tab 0.5 tab, Oral, BID losartan 100 mg Tab 100 mg = 1 tab(s), Oral, Daily magnesium glycinate 100 mg oral capsule 200 mg = 2 cap(s), Oral, Daily meclizine 12.5 mg Tab 12.5 mg = 1 tab(s), PRN, Oral, TID nebivolol 2.5 mg oral tablet 2.5 mg = 1 tab(s), Oral, Daily niacin 500 mg oral capsule, extended release 500 mg = 1 cap(s), Oral, Once a day (at bedtime) omega-3 polyunsaturated fatty acids 425 mg oral tablet, chewable 850 mg = 2 tab(s), Oral, Daily orphenadrine 100 mg ER Tab 100 mg = 1 tab(s), Oral, BID pregabalin 50 mg Cap 50 mg = 1 cap(s), Oral, TID spironolactone 25 mg Tab 25 mg = 1 tab(s), Oral, BID thyroid desiccated 30 mg Tab 30 mg = 1 tab(s), Oral, Daily traMADOL 50 mg Tab 50 mg = 1 tab(s), PRN, Oral, q4hr Ventolin HFA 90 mcg/inh Aerosol-Adpt 1 puff(s), PRN, Inhalation, Once Vitamin D3 5000 intl units oral capsule 125 mcg = 1 cap(s), Oral, Daily vitamin E 100 intl units oral capsule 1 cap(s), Oral, Daily zolpidem 10 mg sublingual tablet 10 mg = 1 tab(s), PRN, SubLingual, Once a day (at bedtime) Problem list: All Problems Cervical disc disease with myelopathy / SNOMED CT 180271370 / Confirmed Cervical radiculopathy / SNOMED CT 675473568 / Confirmed Chronic insomnia / SNOMED CT 4637550433 / Confirmed Essential hypertension / SNOMED CT 72476162 / Confirmed Secondary adrenal insufficiency / SNOMED CT 1059740804 / Confirmed Cervical disc displacement / SNOMED CT 0211999589 / Confirmed Cervical paraspinal muscle spasm / SNOMED CT 7888199112 / Confirmed Fibromyalgia / SNOMED CT 361968159 / Confirmed Central hypothyroidism / SNOMED CT 60810016 / Confirmed Euthyroid sick syndrome / SNOMED CT 490377182 / Confirmed 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 / SNOMED CT 56577785 / Confirmed Hypotestosteronemia in male / SNOMED CT 3442193556 / Confirmed Scwiywbmhiaf-otyjstgwj-afljfsm axis dysfunction / SNOMED CT 9948863100 / Confirmed Asymmetrical sensorineural hearing loss / SNOMED CT 1580333133 / Confirmed Chronic fatigue / SNOMED CT 603013638 / Confirmed Dyslipidemia / SNOMED CT 5611203065 / Confirmed, Active Problems (16) Asymmetrical sensorineural hearing loss Central hypothyroidism Cervical disc disease with myelopathy Cervical disc displacement Cervical paraspinal muscle spasm Cervical radiculopathy Chronic fatigue Chronic insomnia Dyslipidemia Essential hypertension Euthyroid sick syndrome 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 Fibromyalgia Hypotestosteronemia in male Tlopqdovcvjg-fjuoylqaq-kkgbocm axis dysfunction Secondary adrenal insufficiency Histories Past Medical History: No active or resolved past medical history items have been selected or recorded. Family History: No family history items have been selected or recorded. Procedure history: Tonsillectomy and adenoidectomy (283952970). Transposition of RIGHT ulnar nerve at elbow (0988968). Arthroscopy of LEFT knee x2 (240985830). Cervical spinal fusion C5-C7 (170789435). Artificial vertebral disc C3-C4 and C4-C5 (4488487723). Social History Social & Psychosocial Habits Alcohol 05/01/2025 Risk Assessment: No Risk Substance Abuse 05/01/2025 Risk Assessment: Medium Risk Tobacco 05/01/2025 Risk Assessment: No Risk . Physical Examination Vital Signs 05/22/2025 6:17 EDT Heart Rate Monitored 65 bpm Systolic Blood Pressure 142 mmHg HI Diastolic Blood Pressure 84 mmHg Mean Arterial Pressure, Cuff 103 mmHg 05/22/2025 6:17 EDT Blood Pressure Location Left arm 05/22/2025 6:16 EDT Heart Rate Monitored 65 bpm SpO2 98 % 05/22/2025 6:15 EDT Respiratory Rate 16 br/min 05/22/2025 6:15 EDT Temperature Oral 36.6 DegC 05/22/2025 6:14 EDT Systolic Blood Pressure 153 mmHg HI Diastolic Blood Pressure 83 mmHg Mean Arterial Pressure, Cuff 106 mmHg 05/22/2025 5:52 EDT Blood Pressure Location Right arm General: A&O, NAD Operative extremity: + obriens Review / Management Results review Impression and Plan Impression: SLAP tear, left shoulder Plan: to OR Result Comment: Electronical ly Signed By: Mike López DO\.br\Date and Time Signed: 05/22/25 07:10 EDT DISCHARGE INSTRUCTIONS Observed: 025 5:47 AM Status: F Source: [facility] Discharge Instructions DAVID HANDY :1960 Visit Date:05/22/2025 Inpatient Discharge Instructions Your Care Team Admitting Physician - Mike López DO Referring Physician - Mike López DO Reason for Your Visit LEFT SHOULDER SLAPP TEAR Procedure History Arthroscopy of knee, Artificial vertebral disc, Cervical spinal fusion, Tonsillectomy and adenoidectomy, Transposition of ulnar nerve at elbow. Discharge Vitals Temperature (Temporal Artery) 36.3 ???C Heart Rate (Monitored) 75 Respiratory Rate 18 Blood Pressure 137/84 What to do next New Follow Up Appointments after Discharge Follow Up with Mike López When: 06/02/2025 08:15 AM EDT Comments: Appointment has already been scheduled. Call for any problems. Where: [facility] Medications What How Much When Instructions Next Dose New acetaminophen (acetaminophen 500 mg Tab) 1 Tablets By Mouth Every 4 hours Pickup at [facility]/pharmacy #[id number] New celecoxib (CeleBREX 200 mg Cap) 1 Capsules By Mouth Every day start after finishing ketorolac Pickup at [facility]/pharmacy #[id number] New docusate (Colace 100 mg Cap) 1 Capsules By Mouth 2 times a day as needed for for constipation Pickup at [facility]/pharmacy #[id number] New ketorolac (ketorolac 10 mg Tab) 1 Tablets By Mouth Every 8 hours Duration: 3 Days Pickup at [facility]/pharmacy #[id number] New oxycodone (oxyCODONE 5 mg Tab) See instructions 1-2 tab(s) Oral q4hr Pickup at [facility]/pharmacy #[id number] Unchanged albuterol (Ventolin HFA 90 mcg/ inh Aerosol-Adpt) 1 Puffs Inhalation Once as needed for for wheezing Unchanged anastrozole (anastrozole 1 mg Tab) 1 Tablets By Mouth Every day hypotestosteronemia Unchanged aspirin (aspirin 81 mg Oral EC Tab) 1 Tablets By Mouth Every day Unchanged azelastine nasal (azelastine nasal 0.15% spray) 1 Sprays Nasal Inhalation 2 times a day as needed for for allergy symptoms Unchanged buPROPion (buPROPion 150 mg/ 24 hours XL Tab) 1 Tablets By Mouth Every 24 hours only during the winter for seasonal depression Unchanged carisoprodol (carisoprodol 350 mg Tab) 1 Tablets By Mouth Every day Unchanged cholecalciferol (Vitamin D3 5000 intl units oral capsule) 1 Capsules By Mouth Every day with food Unchanged clomiPHENE (clomiPHENE 50 mg Tab) 0.5 tab By Mouth Sunday & Sunday hypotestosteronemia Unchanged dehydroepiandrosterone (dehydroepiandrosterone 50 mg oral tablet) 1 Tablets By Mouth Every day hypotestosteronemia Unchanged gemfibrozil (gemfibrozil 600 mg Tab) 1 Tablets By Mouth 2 times a day Unchanged hydrocortisone (hydrocortisone 10 mg Tab) 1 Tablets By Mouth 2 times a day uwjkmalehsdk-fislzplah-boseiim axis Unchanged liothyronine (liothyronine 5 mcg Tab) 0.5 tab By Mouth 2 times a day Unchanged losartan (losartan 100 mg Tab) 1 Tablets By Mouth Every day Unchanged magnesium glycinate (magnesium glycinate 100 mg oral capsule) 2 Capsules By Mouth Every day Unchanged meclizine (meclizine 12.5 mg Tab) 1 Tablets By Mouth 3 times a day as needed for for dizziness Unchanged nebivolol (nebivolol 2.5 mg oral tablet) 1 Tablets By Mouth Every day Unchanged niacin (niacin 500 mg oral capsule, extended release) 1 Capsules By Mouth Once a day (at bedtime) Unchanged omega-3 polyunsaturated fatty acids (omega-3 polyunsaturated fatty acids 425 mg oral tablet, chewable) 2 Tablets By Mouth Every day Unchanged orphenadrine (orphenadrine 100 mg ER Tab) 1 Tablets By Mouth 2 times a day Unchanged pregabalin (pregabalin 50 mg Cap) 1 Capsules By Mouth 3 times a day Unchanged spironolactone (spironolactone 25 mg Tab) 1 Tablets By Mouth 2 times a day PRN for vertigo Unchanged suzetrigine (Journavx 50 mg oral tablet) 1 Tablets By Mouth Every 12 hours 50mg by mouth every 12hrs for 14 days for the first dose, take 2 tablets 100 mg on an empty stomach at least 1hr before or 2hr after food. starting 12hrs after the inital dose, take 1 tablet 50mg every 12hrs with or without food Unchanged thyroid desiccated (thyroid desiccated 30 mg Tab) 1 Tablets By Mouth Every day Unchanged vitamin E (vitamin E 100 intl units oral capsule) 1 Capsules By Mouth Every day Unchanged zolpidem (zolpidem 10 mg sublingual tablet) 1 Tablets Sublingual Once a day (at bedtime) as needed for for sleep Pharmacy Information [facility]/pharmacy #[id number]: [address], [place] [id number] [phone] What How Much When Comments Stop Taking tramadol (traMADOL 50 mg Tab) 1 Tablets By Mouth Every 4 hours as needed for for pain Allergies Latex (Itching) Devices Implanted/Removed This Visit Notice: You have devices implanted this visit that may not be MRI compatible. Implanted SHOULDER ARTHROSCOPY W/ POSSIBLE REPAIR Shoulder L knotless BC loop n tack tenodesis implant system 05/22/2025 Education Materials [place], [place] [facility] AFTER YOUR SHOULDER ARTHROSCOPY 1. Diet: Begin with a liquid diet and advance to your normal diet as tolerated. 2. Activity: You may remove your sling for bathing and to perform gentle range of motion exercises for the hand, wrist, and elbow. Bend and straighten your elbow and wrist several times per day to minimize stiffness. Keep your elbow in close to your side when performing these exercises. Do not move your shoulder until instructed by your surgeon. Swelling after surgery is normal and this will gradually decrease over time. All sports activities are discouraged, at least until your first post-operative visit at which time we will discuss how and when to resume sports. 3. Driving: Driving is legal. If you are involved in an accident, you must be able to prove that you maintained full control of your vehicle. For this reason, it is advised that you do not drive until your strength returns. You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 or approved by the U.S. Food and Drug Administration. This assay has been validated pursuant to the CLIA regulations and is used for clinical purposes. Performed By: #### [id number] ### # [facility] [address] [facility] [place] [address] Silk Screen Printer: Johan Nolasco M.D.,PhD #### 873, 866, 402, 548, 74793 #### [facility] [address] Silk Screen Printer: Des Malik MD #### [id number] #### [facility] [address] [place] [address] Silk Screen Printer: Henrietta Valdez MD,PhD,LORENA ESTRADIOL,ULTRASENSITIVE, LC/MS Collect ed: 03/27/2025 11:28 AM Status: F Source: [facility] TYPE CODE TESTS RESULT OUT OF RANGE REFERENCE UNITS LAB [id number] ESTRADIOL ,ULTRASEN SITIVE, LC/MS 18 < OR = 29 pg/mL Result Comment: This test was developed and its analytical performance characteristics have been determined by [facility]. It has not been cleared or approved by the FDA. This assay has been validated pursuant to the CLIA regulations and is used for clinical purposes. Performed By: #### [id number] ### # [facility] [place] [address] [facility] [place], [place] Silk Screen Printer: Johan Nolasco M.D.,PhD #### 873, 866, 402, 859, [phone] #### [facility] [place] [address] Silk Screen Printer: Des Malik MD #### [id number] #### [facility] [address] [place] [address] Silk Screen Printer: Henrietta Valdez MD,PhD,LORENA DHEA SULFATE Collected: 11:28 AM Status: F Source: [facility] TYPE CODE TESTS RESULT OUT OF RANGE REFERENCE UNITS LAB [id number] DHEA SULFATE 171 Normal 20-217 mcg/dL Performed By: #### [id number] ### # [facility] [address] [facility] [place] Silk Screen Printer: Johan Nolasco M.D.,PhD #### 873, 866, 402, [phone], [phone] #### [facility] [address] , [address] [place], [place] [id number] Silk Screen Printer: Des Malik MD #### [id number] #### [facility], [address] [place] [address] Silk Screen Printer: Henrietta Valdez MD,PhD,LORENA T3, TOTAL Collected: 5 11:28 AM Status: F Source: [facility] TYPE CODE TESTS RESULT OUT OF RANGE REFERENCE UNITS LAB [id number] T3, TOTAL 80 Normal 76-181 ng/dL Performed By: #### [id number] ### # [facility]/[place] [address] [facility] [place], [place] Silk Screen Printer: Johan Nolasco M.D.,PhD #### 873, 866, 402, 859, [id number] #### [facility] [place] [address] [place] , [address] [place] [address] Silk Screen Printer: Des Malik MD #### [id number] #### [facility], [address] [place] [address] Silk Screen Printer: Henrietta Valdez MD,PhD,LORENA T4, FREE Collected: 5 11:28 AM Status: F Source: [facility] TYPE CODE TESTS RESULT OUT OF RANGE REFERENCE UNITS LAB [id number] T4, FREE 1.1 Normal 0.8-1.8 ng/dL Performed By: #### [id number] ### # [facility] [address] [facility] [place] Silk Screen Printer: Johan Nolasco M.D.,PhD #### 873, 866, 402, 859, [id number] #### [facility] [place] [address] [place] , [address] [place] [address] Silk Screen Printer: Des Malik MD #### [id number] #### [facility], [address] [place] [address] Silk Screen Printer: Henrietta Valdez MD,PhD,LORENA TESTOSTERONE, TOTAL, MALES (ADULT), [place] Collected: 03/27/2025 11:28 AM Status: F Source: [facility] TYPE CODE TESTS RESULT OUT OF RANGE REFERENCE UNITS LAB [id number] TESTOSTERON E, TOTAL, MALES (ADULT), [place] 376 Normal 250-827 ng/dL Performed By: #### [id number] ### # [facility]/[place] [address] [facility] [place] Silk Screen Printer: Johan Nolasco M.D.,PhD #### 873, 866, 402, 859, 31787 #### [facility] [place] [address] [facility], [address] [place], [place] [address] Silk Screen Printer: Des Malik MD #### [id number] #### [facility], [address] [place] [address] Silk Screen Printer: Henrietta Valdez MD,PhD,LORENA T3, FREE Collected: 11:28 AM Status: F Source: [facility] TYPE CODE TESTS RESULT OUT OF RANGE REFERENCE UNITS LAB [id number] T3, FREE 4.1 Normal 2.3-4.2 pg/mL Performed By: #### [id number] ### # [facility]/[place] [address] [facility] [place] Silk Screen Printer: Johan Nolasco M.D.,PhD #### 873, 866, 402, 859, 02918 #### [facility] [address], [address] [place] [address] Silk Screen Printer: Des Malik MD #### [id number] #### [facility], [address] [place] [address] Silk Screen Printer: Henrietta Valdez MD,PhD,LORENA HEMOGLOBIN A1C Collected: 11:27 AM Status: F Source: [facility] Order Comment: MULTIPLE TEST ING PRIORITIES; ROUTINE TESTING TO FOLLOW. TYPE CODE TESTS RESULT OUT OF RANGE REFERENCE UNITS LAB [id number] HEMOGLOBIN A1c 5.5 Normal <5.7 % Result Comment: For the purp ose of screening for the presence of diabetes: <5.7% Consistent with the absence of diabetes 5.7-6.4% Consistent with increased risk for diabetes (prediabetes) > or =6.5% Consistent with diabetes This assay result is consistent with a decreased risk of diabetes. Currently, no consensus exists regarding use of hemoglobin A1c for diagnosis of diabetes in children. According to [place] Diabetes Association (ADA) guidelines, hemoglobin A1c <7.0% represents optimal control in non- diabetic patients. Different metrics may apply to specific patient populations. Standards of Medical Care in Diabetes(ADA). Performed By: #### [id number] #### [facility] [address], [address] [place] [address] Silk Screen Printer: Des Malik MD PROGRESS Observed: 02/11/2025 11:19 AM Status: COMPLETED Source: [facility] HNO ID: [id number] Author: YOSELYN LOPEZ APRN.DIRECT MAIL MANAGER Service: ? Author Type: Nurse Practitioner Type: Progress Notes Filed: 02/11/2025 11:24 Note Text: Per Triage: David Handy is a 64 year old male that reports symptoms of neck and arm pain, imbalance, left hand weakness, trouble using hands, BLE numbness. Referring provider: Dr. Ariadne Reyes Is this a 2nd opinion and offered surgery?: Yes, reports offered surgery We did discuss the option of posterior cervical decompression C7 and T1 with stabilization C6-T2. He is not wanting surgery at this point. Out of state: No BMI: 23 A1C: n/a Previous Spine Surgery: Yes CMT: Tramadol, Muscle relaxants, oral steroids, Gabapentin, Celebrex, Tylenol, PT Studies (Reports unless indicated) Dxa- Osteopenia XR 12/26/24: Anterior cervical discectomy and fusion hardware remains in place at C5, C6, and C7 with interbody grafts. Cervical disc replacement devices are now seen at C3-C4 and C4-C5. There is approximately 4 mm of anterolisthesis at C7-T1, minimally exacerbated with flexion maneuver. There is straightening of the cervical lordosis. There is multilevel facet joint osteoarthritis and uncinate spurring. There is bony foraminal narrowing, mild to moderate bilaterally at C3-4, C4-5, C5-6, C6-7, and C7-T1 bilaterally. CT 12/26/24: 1. Developing grade 1 anterolisthesis at C7-T1 compared to the prior CT which appears to be due to vertical pedicle fractures and facet joint arthritis. 2. ACDF at C5-C7 is again seen and in stable position. 3. Interval cervical disc replacement at C3-C4 and C4-C5. 4. No bony central canal stenosis identified but there is multilevel bony foraminal canal narrowing due to a combination of facet joint arthritis and uncovertebral spurring. MRI 10/27/24: 1. C3-7 anterior fixation construct promotes susceptibility that hinders regional evaluation. 2. No fracture. 3. C7-T1 listhesis, 2 mm. 4. Central disc extrusion at C7-T1 as described, contributing to severe spinal canal stenosis with cord deformation, though no apparent cord inflammation indicative of acute compression. 5. Degenerative changes elsewhere as detailed. At other levels, spinal canal stenosis is greatest at C3-4 and C4-5, moderate. Neural foraminal stenosis appears to be greatest on the left at C3-4, likely at least moderate to severe. Disposition: Please schedule with cervical spine surgeon. Indications for recommendations: severe stenosis and previously offered surgery seeking 2nd opinion Please advise pt to send/upload images prior to visit or hand carry on CD to visit (spine MRIs, xrays) PROGRESS Observed: 02/11/2025 8:42 AM Status: COMPLETED Source: [facility] HNO ID: [id number] Author: ?, ?, ? Service: ? Author Type: ? Type: Progress Notes Filed: 02/11/2025 11:24 Note Text: Patient name: David Handy Are you being referred by a [facility] Provider or Pain Management Provider at [facility]? No If answer is YES please schedule directly with surgeon, triage does not need to be completed. Is this a self-referral No If not, who is the Referring Provider Dr. Ariadne Reyes Is this a 2nd opinion from another spine surgeon? Yes Were you offered surgery? Yes MRI/CT/myelogram within 12 months? Yes If NO , please refer to medical spine or PCP to complete above imaging, triage does not need to be completed If YES,? please ask for the name/address of the facility where the MRI/CT/myelogram was completed: MRI/CT [address] [address] MRI/CT/myelogram viewable in Epic: No If not, please provide [phone] to fax in imaging reports for review. Also, please inform patient to hand carry imaging disc to appointment. XR (spine) within 12 months: Yes If YES,? please ask for the name/address of the facility where the XR was completed: [address] [address] [address] Garcia's patients: Have you had previous EMG/Nerve Conduction Study, Ultrasound, or MRI for these same symptoms? If YES,? please ask for the name/address of the facility where they were completed: Requested provider (First and Last name): unknown Are you interested in a virtual visit if offered? 1. Where are you having symptoms related to this visit? Cervical Spine Back pain No Leg pain No Arm pain Yes some Neck pain Yes 2. Are you having any of the following symptoms: Difficulty walking some balance issue Numbness Yes legs, feet Weakness Yes Lt hand Trouble using your hands? Yes some 3. Have you had any injections or physical therapy in the last 12 months? Yes If YES then please ask for the name/address of the facility where the injections and/or physical therapy was completed PT: [facility] over 12 months [address] [place] [address] Have you tried any other kinds of non-surgical treatments in the last 12 months? (For example: NSAIDS, muscle relaxants, analgesics, oral steroids, Chiropractor, Acupuncture): Muscle relaxants, oral steroids, Gabapentin, Celebrex, Tylenol 4. Are you currently taking daily prescribed narcotic medications for your current symptoms (For example Oxycodone, Hydrocodone, Tramadol, Morphine, Other)? Yes Tramadol 5. Have you had previous spinal surgery for this same symptoms? Yes If YES? please ask for the name of facility/address of where the surgery was completed: Additional Comments [phone] DEXA BONE DENSITY Observed: 01/29/2025 8:46 AM Status: F Source: [facility] EPIC Examination: DEXA BONE DENSI TY Clinical History: screening, low impact cervical fracture Technique: Bone density study was performed. T score values for the lumbar spine, right femoral neck and left femoral neck were obtained. Comparison: None Findings: Value for the lumbar spine from L1-L4 is -1.0. Value for the right femoral neck is -2.1. Value for the left femoral neck is -2.2. Findings are compatible with severe osteopenia with moderate to high increased fracture risk. No evidence of osteoporosis. IMPRESSION: Impression: Findings compatible with severe osteopenia with moderate to high increased fracture risk. ELECTRONICALLY SIGNED BY: Tom Norris M.D. XR CERVICAL SPINE AP/LAT/FLEX/EXT/OBLIQUES Observed: 12/26/2024 8:03 AM Status: F Source: [facility] EPIC Exam: XR CERVICAL SPINE AP/L AT/FLEX/EXT/OBLIQUES Reason for study: Chronic neck pain, stenosis Comparison: CT cervical spine April 20, 2023 AP, lateral, lateral flexion, lateral extension, odontoid, and bilateral oblique views Anterior cervical discectomy and fusion hardware remains in place at C5, C6, and C7 with interbody grafts. Cervical disc replacement devices are now seen at C3-C4 and C4-C5. There is approximately 4 mm of anterolisthesis at C7-T1, minimally exacerbated with flexion maneuver. There is straightening of the cervical lordosis. There is multilevel facet joint osteoarthritis and uncinate spurring. There is bony foraminal narrowing, mild to moderate bilaterally at C3-4, C4-5, C5-6, C6-7, and C7-T1 bilaterally. Prevertebral soft tissues are normal. IMPRESSION: Stable appearance of the ACDF at C5-C7. Introduction of cervical disc replacement devices at C3-4 and C4-5. Multilevel osteoarthritis of the cervical spine results in multilevel bilateral bony foraminal canal encroachment. Dictated on: 12/26/2024 10:02 AM This report has been electronically signed and approved by the interpreting Radiologist. CT CERVICAL SPINE WO IV CONTRAST Observed: 12/26/2024 8:03 AM Status: F Source: [facility] EPIC Order Comment: SPINAL STENOS IS CT CERVICAL SPINE WO IV CONT RAST INDICATION: Chronic neck pain, stenosis COMPARISONS: CT cervical spine April 20, 2023 TECHNIQUE: 2 mm axial images were obtained from the skull base to T1. 2-D sagittal and coronal reformations were created. FINDINGS: BONES/DISCS: The bones appear demineralized. Anterior cervical discectomy and fusion has been performed at C5, C6, and C7. Cervical disc replacement devices are in place at C3-C4 and C4-C5. There are vertically oriented fractures through the bilateral pedicles of C7. The margins appear corticated and this may be chronic although not present on prior CT. PARASPINAL SOFT TISSUES: No paraspinal edema or fluid collection. Levels: C2-3: No canal or foraminal stenosis. C3-4: Facet joint osteoarthritis is seen bilaterally along with uncinate spurring bilaterally. There is moderate bony foraminal canal encroachment bilaterally. C4-5: Left-sided facet joint arthritis with bilateral uncinate spurring. Mild bony foraminal narrowing bilaterally. C5-6: Facet joint arthritis and mild uncinate spurring. No appreciable foraminal narrowing or central canal narrowing as seen. C6-7: Facet joint osteoarthritis and uncinate spurring, particularly on the right side. There is moderate foraminal narrowing bilaterally. C7-T1: There is facet joint arthritis bilaterally. Mild anterolisthesis. Mild to moderate bony foraminal encroachment is seen bilaterally. OTHER: Visualized lung apices are clear. IMPRESSION: 1. Developing grade 1 anterolisthesis at C7-T1 compared to the prior CT which appears to be due to vertical pedicle fractures and facet joint arthritis. 2. ACDF at C5-C7 is again seen and in stable position. 3. Interval cervical disc replacement at C3-C4 and C4-C5. 4. No bony central canal stenosis identified but there is multilevel bony foraminal canal narrowing due to a combination of facet joint arthritis and uncovertebral spurring. Dictated on: 12/26/2024 10:07 AM This report has been electronically signed and approved by the interpreting Radiologist. MR SHOULDER LEFT WO IV CONTRAST Observed: 11/21/2024 9:44 AM Status: F Source: [facility] EPIC Order Comment: Previous Spin e surgery 2022 Spine surgery Hybrid technique fusion , Artifical disc Previous MRI of Left Shoulder 10/2022 Nomtobi Lange EXAM: MR SHOULDER LEFT WO IV CONTRAST HISTORY: Left shoulder SLAP tear TECHNIQUE: Multiplanar multisequence MRI of the shoulder was performed Without contrast. COMPARISON: Shoulder radiographs October 06, 2024 FINDINGS: Mild degenerative changes of the acromioclavicular joint with tiny undersurface osteophyte formation. The acromion is curved. Coracoclavicular ligament intact. No subacromial/subdeltoid bursal fluid. The supraspinatus, infraspinatus, subscapularis, and teres minor tendons are intact. No atrophy or fatty infiltration of the rotator cuff musculature. The intra-articular and extra-articular long head biceps tendon is intact. The biceps tendon resides within the bicipital groove. Tear of the superior through posterior superior labrum. No well-defined or measurable cartilage defect. No glenohumeral joint effusion . IMPRESSION: Tear of the superior through posterior superior labrum. ELECTRONICALLY SIGNED BY: Eduar Puga DO MR BRAIN WO CONTRAST Observed: 1:30 PM Status: F Source: [facility] EPIC TITLE OF EXAM: MR BRAIN WO C ONTRAST REASON FOR EXAM: Brain fog and memory issues TECHNIQUE: Multisequence, multiplanar MRI of the brain COMPARISON: Brain MRI 01/23/2020 FINDINGS: Brain and intracranial structures: The ventricles, cisterns, and sulci are symmetric and normal in volume/caliber for age. Mild/moderate burden nonspecific supratentorial white matter T2 signal hyperintense lesions, most commonly a consequence of vascular risk factors and/or migraine headaches, greatest in number involving the left frontal and parietal lobes. No mass lesion, hemorrhage, or acute infarct. Skull/scalp: Normal. Orbits and face (included portions): Normal. Paranasal sinuses and mastoid air cells (included portions): Clear. IMPRESSION: No acute intracranial abnormality. No findings to explain the patient's reported cognitive abnormalities. DICTATED ON: 10/27/2024 12:53 PM This report has been electronically signed in approved by the interpreting radiologist. MR CERVICAL SPINE W AND WO CONTRAST Observed: 10/27/2024 1:30 PM Status: F Source: [facility] EPIC TITLE OF EXAM: MR CERVICAL S PINE W AND WO CONTRAST REASON FOR EXAM: Chronic neck pain, stiffness TECHNIQUE: Multisequence, multiplanar MRI of the cervical spine prior to and following the intravenous administration of 7 cc Vueway COMPARISON: CT cervical spine 04/20/2023 and MRI cervical spine 10/13/2022. FINDINGS: General findings: There are 7 nonrib-bearing cervical vertebrae. C3-C7 anterior fixation which promotes susceptibility that hinders regional evaluation. No fracture; normal vertebral body heights. Anterolisthesis of C7 on T1, 2 mm. Otherwise anatomic alignment of the vertebral bodies and posterior elements where evaluable. Craniocervical and atlantoaxial relationships: Anatomic. Marrow: Mild T2 signal hyperintensity about the degenerated right C7 and T1 facet joint. Otherwise normal marrow signal where evaluable. Spinal canal: No mass. Normal cord signal and caliber. Paraspinal muscles and visualized soft tissues: Normal. Degenerative findings: C1-C2: Moderate atlantodens osteoarthrosis. No spinal canal or neural foraminal stenosis. C2-3: Mild to moderate left facet osteoarthrosis. Mild to moderate left and mild right neural foraminal stenosis. No significant spinal canal narrowing. C3-4: Fixed level. Severe bilateral facet osteoarthrosis. Uncovertebral proliferation. Neural foraminal stenosis is not accurately evaluable due to aforementioned susceptibility, though favored at least moderate to severe on the left and moderate on the right. Spinal canal stenosis is favored moderate. C4-5: Fixed level. Severe left and mild right facet osteoarthrosis. Uncovertebral proliferation. Neural foraminal stenosis is not accurately evaluable due to aforementioned susceptibility, though favored at least moderate bilaterally. Spinal canal stenosis is favored moderate. C5-6: Fixed level. Neural foraminal stenosis is not accurately evaluable due to aforementioned susceptibility, though favored mild bilaterally. No significant spinal canal narrowing. C6-7: Fixed level. Neural foraminal stenosis is not accurately evaluable due to aforementioned susceptibility, though favored at least mild to moderate bilaterally. No significant spinal canal narrowing. C7-T1: Aforementioned listhesis. Mild degenerative disc disease. Central disc extrusion projects 0.5 cm dorsally and descends the posterior endplate of T1 1.2 cm. The extrusion contacts and deforms the ventral cord in the spinal canal. Neural foraminal stenosis is moderate on the left and mild to moderate on the right. Spinal canal stenosis is severe, with complete effacement of CSF space about the cord, though no signal changes to suggest inflammation indicative of acute compression. IMPRESSION: 1. C3-7 anterior fixation construct promotes susceptibility that hinders regional evaluation. 2. No fracture. 3. C7-T1 listhesis, 2 mm. 4. Central disc extrusion at C7-T1 as described, contributing to severe spinal canal stenosis with cord deformation, though no apparent cord inflammation indicative of acute compression. 5. Degenerative changes elsewhere as detailed. At other levels, spinal canal stenosis is greatest at C3-4 and C4-5, moderate. Neural foraminal stenosis appears to be greatest on the left at C3-4, likely at least moderate to severe. DICTATED ON: 10/28/2024 10:10 AM This report has been electronically signed in approved by the interpreting radiologist. LIPID PANEL, STANDARD Collected: 10/24/2024 8:09 AM Status: F Source: [facility] Order Comment: FASTING:YES FASTING: YES TYPE CODE TESTS RESULT OUT OF RANGE REFERENCE UNITS LAB [id number] CHOLESTEROL, TOTAL 173 Normal <200 mg/dL LAB [id number] HDL CHOLESTEROL 31 Low > OR = 40 mg/dL LAB [id number] TRIGLYCERIDES 360 High <150 mg/dL Result Comment: If a non-fasting specimen was collected, consider repeat triglyceride testing on a fasting specimen if clinically indicated. Edvin et al. J. of Clin. Lipidol. 2015;9:129-169. LAB [id number] LDL-CHOLESTEROL 94 Normal mg/dL (calc) Result Comment: Reference ra nge: <100 Desirable range <100 mg/dL for primary prevention; <70 mg/dL for patients with CHD or diabetic patients with > or = 2 CHD risk factors. LDL-C is now calculated using the Yaya-Troy calculation, which is a validated novel method providing better accuracy than the Friedewald equation in the estimation of LDL-C. Yaya SS et al. GENNA. 2013;310(19): 1123-0283 (http://education.AmeriPath/faq/BYI358) LAB [id number] CHOL/HDLC RATIO 5.6 High <5.0 (calc) LAB [id number] NON HDL CHOLESTEROL 142 High <130 mg/dL (calc) Result Comment: For patients with diabetes plus 1 major ASCVD risk factor, treating to a non-HDL-C goal of <100 mg/dL (LDL-C of <70 mg/dL) is considered a therapeutic option. Performed By: #### [id number], 63 [phone] #### [facility] [address] [place] [address] Silk Screen Printer: Jud Kaplan #### [phone], [phone] #### [facility] [address], [address] [place] [address] Silk Screen Printer: Des Malik MD IRON AND TOTAL IRON BINDING CAPACITY Collected: 10/24/2024 8:09 AM Status: F Source: [facility] TYPE CODE TESTS RESULT OUT OF RANGE REFERENCE UNITS LAB [id number] IRON, TOTAL 91 Normal 50-180 mcg/dL LAB [id number] IRON BINDING CAPACITY 429 High 250-425 mcg/dL (calc) LAB [id number] % SATURATION 21 Normal 20-48 % (calc) Performed By: #### 11381, 63 99 #### [facility] [place] [address] Silk Screen Printer: Jud Kaplan #### 561, 7573, 7600 #### [facility] [address], [address] [place] [address] Silk Screen Printer: Des Malik MD COMPREHENSIVE METABOLIC PANEL Collected : 10/24/2024 8:09 AM Status: F Source: [facility] TYPE CODE TESTS RESULT OUT OF RANGE REFERENCE UNITS LAB [id number] GLUCOSE 131 High 65-99 mg/dL Result Comment: Fasting reference interval For someone without known diabetes, a glucose value >125 mg/dL indicates that they may have diabetes and this should be confirmed with a follow-up test. LAB [id number] UREA NITROGEN (BUN) 27 High 7-25 mg/dL LAB [id number] CREATININE 1.09 Normal 0.70-1.35 mg/dL LAB [id number] EGFR 76 Normal > OR = 60 mL/min/1 .73m2 LAB [id number] BUN/CREATININE RATIO 25 High 6-22 (calc) LAB [id number] SODIUM 137 Normal 135-146 mmol/L LAB [id number] POTASSIUM 4.2 Normal 3.5-5.3 mmol/L LAB [id number] CHLORIDE 104 Normal 98-110 mmol/L LAB [id number] CARBON DIOXIDE 25 Normal 20-32 mmol/L LAB [id number] CALCIUM 9.6 Normal 8.6-10.3 mg/dL LAB [id number] PROTEIN, TOTAL 6.9 Normal 6.1-8.1 g/dL LAB [id number] ALBUMIN 4.8 Normal 3.6-5.1 g/dL LAB [id number] GLOBULIN 2.1 Normal 1.9-3.7 g/dL (calc) LAB [id number] ALBUMIN/GLOBUL IN RATIO 2.3 Normal 1.0-2.5 (calc) LAB [id number] BILIRUBIN, TOTAL 0.5 Normal 0.2-1.2 mg/dL LAB [id number] ALKALINE PHOSPHATASE 59 Normal 35-144 U/L LAB [id number] AST 11 Normal 10-35 U/L LAB [id number] ALT 12 Normal 9-46 U/L Performed By: #### 89427, 63 99 #### [facility] [address] [place] [address] Silk Screen Printer: Jud Kaplan #### 561, 1284, 8790 #### [facility] [address] [facility], [address] [place] [address] Silk Screen Printer: Des Malik MD CBC (INCLUDES DIFF/PLT) Collected: 10/02 8:09 AM Status: F Source: 3seventy TYPE CODE TESTS RESULT OUT OF RANGE REFERENCE UNITS LAB [id number] WHITE BLOOD CELL COUNT 5.4 Normal 3.8-10.8 Thousand /uL LAB [id number] RED BLOOD CELL COUNT 4.88 Normal 4.20-5.80 Million/ uL LAB [id number] HEMOGLOBIN 15.1 Normal 13.2-17.1 g/dL LAB [id number] HEMATOCRIT 45.1 Normal 38.5-50.0 % LAB [id number] MCV 92.4 Normal 80.0-100.0 fL LAB [id number] MCH 30.9 Normal 27.0-33.0 pg LAB [id number] MCHC 33.5 Normal 32.0-36.0 g/dL Result Comment: For adults, a slight decrease in the calculated MCHC value (in the range of 30 to 32 g/dL) is most likely not clinically significant; however, it should be interpreted with caution in correlation with other red cell parameters and the patient's clinical condition. LAB [id number] RDW 13.0 Normal 11.0-15.0 % LAB [id number] PLATELET COUNT 187 Normal 140-400 Thousand /uL LAB [id number] MPV 10.4 Normal 7.5-12.5 fL LAB [id number] ABSOLUTE NEUTROPHILS 3235 Normal 1699-1523 cells/uL LAB [id number] ABSOLUTE LYMPHOCYTES 1480 Normal 850-3900 cells/uL LAB [id number] ABSOLUTE MONOCYTES 356 Normal 200-950 cells/uL LAB [id number] ABSOLUTE EOSINOPHILS 308 Normal 15-500 cells/uL LAB [id number] ABSOLUTE BASOPHILS 22 Normal 0-200 cells/uL LAB [id number] NEUTROPHILS 59.9 Normal % LAB [id number] LYMPHOCYTES 27.4 Normal % LAB [id number] MONOCYTES 6.6 Normal % LAB [id number] EOSINOPHILS 5.7 Normal % LAB [id number] BASOPHILS 0.4 Normal % Performed By: #### 06993, 63 99 #### [facility] [address] [place] [address] Silk Screen Printer: Jud Kaplan #### 561, 7573, 7340 #### [facility] [place] [address] Silk Screen Printer: Des Malik MD FERRITIN Collected: 5 8:09 AM Status: F Source: 3seventy TYPE CODE TESTS RESULT OUT OF RANGE REFERENCE UNITS LAB [id number] FERRITIN 94 Normal 24-380 ng/mL Performed By: #### 64829, 63 99 #### [facility] [address] [place] [address] Silk Screen Printer: Jud Kaplan #### 561, 7573, 2520 #### [place] [address] Silk Screen Printer: Des Malik MD INSULIN Collected: 5 8:09 AM Status: F Source: 3seventy TYPE CODE TESTS RESULT OUT OF RANGE REFERENCE UNITS LAB [id number] INSULIN 14.8 Normal uIU/mL Result Comment: Reference Ra nge < or = 18.4 Risk: Optimal < or = 18.4 Moderate NA High >18.4 Adult cardiovascular event risk category cut points (optimal, moderate, high) are based on Insulin Reference Interval studies performed at [facility] in 2021. Performed By: #### 63238, 63 99 #### [facility] [address] [place] [address] Silk Screen Printer: Jud Kaplan #### 561, 7573, 7210 #### [facility] [address], [address] [place] [address] Silk Screen Printer: Des Malik MD ALLERGIES DATE TYPE / CODE NAME / CODE REACTION SEVERITY SOURCE /[id number](SNOMED CT) Latex VX04777-3 [facility] Drug Class/[id number](SNO MED CT) NO KNOWN ALLERGIES [facility] ENCOUNTERS ADMIT/DISCHARGE ACCOUNT NUMBER ADMITTING ENCOUNTER CLASS LOCATION SOURCE 06/19/2025/06/19/20 [id number] Ambulatory Building:NOM SCIPT [facility] 06/09/2025/06/09/20 [id number] Ambulatory Building:NOM SCIPT [facility] 06/02/2025/06/02/20 [id number] Ambulatory Building:[facility] ORTHO [facility] 06/02/2025/06/02/20 [id number] [facility] 05/22/2025/05/22/20 [id number] DO Mike López Ambulatory FTMCBuilding :ASRoom: CO26Dbh: 01 [facility] 05/05/2025/05/05/20 [id number] [facility]/01/2025 [id number] DO Mike López Ambulatory [facility] :[facility] 05/01/2025/05/01/20 [id number] DO Mike López Ambulatory [facility] :[facility] 04/13/2025/04/13/20 25 [id number] Ambulatory Building:NOM S ORTHO [facility] 04/08/2025/04/08/20 25 [id number] Ambulatory Building:NOM S NEURO [facility] 04/08/2025/04/08/20 25 [id number] [facility] 01/29/2025/01/30/20 25 [id number] Ambulatory Building:NOM SFNRDXA [facility] EP[facility] 01/23/2025/01/24/20 25 [id number] Ambulatory Building:NOM S [facility] EP[facility] 12/31/2024/01/01/20 25 [id number] Ambulatory Building:NOM S NEURO [facility] EPIC 12/26/2024/12/27/19 25 [id number] Ambulatory Building:FNR IMG [facility] EPIC 12/26/2024/12/27/19 25 [id number] Ambulatory Building:NOM SFNRCT [facility] EPIC 12/01/2024/12/02/19 25 [id number] Ambulatory Building:ST NEURO [facility] EPIC 11/21/2024/11/21/19 25 [id number] Ambulatory Building:FNR MR [facility] EP[facility] 11/07/2024/11/07/19 25 [id number] Ambulatory Building:NOM S NEURO [facility] EP[facility] 10/27/2024/10/27/19 25 [id number] Ambulatory Building:FNR MR [facility] EPIC 10/27/2024/10/27/19 25 [id number] Ambulatory Building:FNR MR [facility] EPIC 10/17/2024/10/17/19 25 [id number] Ambulatory Building:NOM S FAMMED [facility] EPIC 10/06/2024/10/06/19 25 [id number] Ambulatory Building:SWS ORTHO [facility] EPIC 10/06/2024/10/06/19 25 [id number] Ambulatory Building:SWS ORTHOAO [facility] EPIC 09/20/2024/09/20/20 24 [id number] Ambulatory Building:NOM S NEURO [facility] EP[facility] 07/25/2024/07/25/20 24 [id number] Ambulatory Building:NOM S [facility] EPIC PAYERS ENCOUNTER GUARANTOR PAYER SUBSCRIBER SOURCE 06/19/2025 DAVID CARRANZAB: [place] [address]Izj: () (WP) Primary Insurance:[facility] [employer] Number: [id number] e Date:2024-10-01 DAVID HANDYDOB: [id number] [place] [address] [facility] EPIC 06/09/2025 DAVID CARRANZAB: [place] [address]Jxs: (HP) (WP) Primary Insurance:[facility] Number: [id number] e Date:2024-10-01 DAVID HANDYDOB: [id number] [place] [address] [facility] EPIC 06/02/2025 BALDEVHARJEET HANDYDOB: [place], [place] [address]Kix: (HP) (WP) Primary Insurance:[facility] Number: [id number] e Date:2024-10-01 DAVID CARRANZAB: [id number] [place] [address] [facility] 06/02/2025 DAVID ELIZABETHSINDIB: [place], [place] [address]Pnt: (HP) (WP) Primary Insurance:[facility] Number: [id number] e Date:2024-10-01 DAVID CARRANZAB: [id number] [place] [address] [facility] EPIC 05/22/2025 BALDEVHARJEET JOHNSONSINDIB: [place] NIELSONTel: ~~(4 1 (HP) Primary Insurance:[employer] Number: [id number] e Date:7110-23-90LXTONY GruberATEVONNE TURNER [address]KY: DAVID DOUGHERTY [facility] 05/05/2025 [facility] Number: [id number] e Date:[id number] Name:Vikash DAVID Vikash TEREB: [id number] [place] [address] [facility] 05/01/2025 EDHARJEET HANDYDOB: SUSANNAH NIELSONTel: ~~(4 1 (HP) Primary Insurance:[facility] Number: [id number] e Date:[id number], [place] [address]FV: EDHARJEET JOHNSONFOSTER [facility] 04/13/2025 EDWARD HEMEYERDOB: [place] [address]Jju: (HP) (WP) Primary Insurance:[facility] Number: [id number] e Date:2024-10-01 DAVID HANDYDOB: [id number] [place] [address] [facility] EPIC 04/08/2025 EDHARJEET HEMEYERDOB: [place], [place] [address]Rgy: (HP) (WP) Primary Insurance:[facility] Number: [id number] e Date:2024-10-01 DAVID HANDYDOB: [id number] [place] [address] [facility] 04/08/2025 EDHARJEET ELIZABETHYERDOB: [place], [place] [address]Lat: (HP) (WP) Primary Insurance:[facility] Number: [id number] e Date:2024-10-01 DAVID HANDYDOB: [id number] [place] [address] [facility] 01/29/2025 EDHARJEET HANDYDOB: [place], [place] [address]Trv: (HP) (WP) [facility] Insurance[facility] Number: [id number] e Date:2024-10-01 EDHARJEET HEMEYERDOB: [id number] [place] [address] [facility] EPIC 01/23/2025 EDHARJEET HEMEYERDOB: [place], [place] [address]Rqf: (HP) (WP) Primary Insurance[facility] Number: [id number] e Date:2024-10-01 EDHARJEET HEMEYERDOB: [id number] [place] [address] [facility] EPIC 12/31/2024 EDHARJEET HEMEYERDOB: [place], [place] [address]Kay: (HP) (WP) Primary Insurance:[facility]PITAL[facility]oonety Number: [id number] e Date:2024-10-01 DAVID HEMEYERDOB: [id number] [place] [address] [facility] EPIC 12/26/2024 EDHARJEET HEMEYERDOB: [place], [place] [address]Lkm: (HP) (WP) Primary Insurance:[facility] Number: [id number] e Date:2024-10-01 EDHARJEET HEMEYERDOB: [id number] [place] [address] [facility] EPIC 12/26/2024 EDHARJEET HEMEYERDOB: [place], [place] [address]Dxj: (HP) (WP) Primary Insurance:[facility] Number: [id number] e Date:2024-10-01 EDHARJEET HEMEYERDOB: [id number] [place] [address] [facility] EPIC 12/01/2024 EDWARD HEMEYERDOB: [place], [place] [address]Iol: (HP) (WP) Primary Insurance:[facility] Number: [id number] e Date:2024-10-01 EDWARD HEMEYERDOB: [id number] [place] [address] [facility] EPIC 11/21/2024 EDWARD HEMEYERDOB: [place], [place] [address]Kmc: (HP) (WP) Primary Insurance:[facility] Number: [id number] e Date:2024-10-01 EDHARJEET HEMEYERDOB: [id number] [place] [address] [facility] EPIC 11/07/2024 EDWARD HEMEYERDOB: [place], [place] [address]Yuq: (HP) (WP) Primary Insurance:[facility] Number: [id number] e Date:2024-10-01 EDWARD HEMEYERDOB: [id number] [place] [address] [facility] EPIC 10/27/2024 EDWARD HEMEYERDOB: [place], [place] [address]Gna: (HP) (WP) Primary Insurance:[facility] Number: [id number] e Date:2024-10-01 EDWARD HEMEYERDOB: [id number] [place] [address] [facility] EPIC 10/27/2024 EDHARJEET HEMEYERDOB: [place], [place] [address]Mxg: (HP) (WP) Primary Insurance:[facility] HEALTHPolicy Number: [id number] e Date:2024-10-01 EDWARD HEMEYERDOB: [id number] [place] [address] [facility] EPIC 10/17/2024 EDWARD HEMEYERDOB: [place], [place] [address]Ewr: (HP) (WP) Primary Insurance[facility] Number: [id number] e Date:2024-10-01 EDHARJEET HEMEYERDOB: [id number] [place] [address] [facility] EP[facility] 10/06/2024 EDHARJEET HEMEYERDOB: [place], [place] [address]Xwl: (HP) (WP) Primary Insurance:[facility] PLUSPolicy Number: [id number] e Date:2022-10-01 EDHARJEET HEMEYERDOB: [id number] [facility] [place] [address] [facility] EPIC 10/06/2024 EDWARD HEMEYERDOB: [place], [place] [address]Vzj: (HP) (WP) Primary Insurance:[employer] [facility]Policy Number: [id number] e Date:2022-10-01 EDHARJEET HEMEYERDOB: [id number] [place] [address] [facility] EPIC 09/20/2024 EDWARD HEMEYERDOB: [place], [place] [address]Jam: (HP) (WP) Primary Insurance:[facility]Policy Number: [id number] e Date:2022-10-01 DAVID CERDA: [id number] [place] [address] [facility] 07/25/2024 DAVID CERDA: [place] [address]Lfx: (HP) (WP) Primary Insurance:[facility]Policy Number: [id number] e Date:2022-10-01 DAVID CERDA: [id number] [place] [address] [facility]
[2025-06-27 23:58] VITALS: BP 137/84; PULSE 87; TEMP 36.8; O2SAT 95; BMI 23.7
[2025-06-28] VITALS (15 sets, daily range): BP systolic 127–145; BP diastolic 68–89; O2SAT 93–98
--- OUTSIDE RECORDS SUMMARY | 2025-06-28 00:03 | XMS_ITS | Encounter Summary ---
Author Organization [facility] Address [address] [place] [address] Care Team Providers Care Appraiser [employer] Name Role Phone Deejay Copoer DO Primary Care Provider [phone] [place], Deejay Charles DO Unavailable [phone] [place], Deejay Charles DO Unavailable [phone] Encounter Details Date Type Department Care Team (Late st Contact Info) Description 04/05/2023 Abstract [facility] [place] [facility] [address] [facility] [address] [place] [address] Santhosh Marte MD 9[address] [facility] [address] [address] Social History Tobacco Use Types Packs/Day Years Used Date Smoking Tobacco: Never Smokeless Tobacco: Never Alcohol Use Standard Drinks/Week Comments Yes 0 (1 standard drink = 0.6 oz pur e alcohol) caffeine: coffee, tea Sex and Gender Information Value Date Recorded Sex Assigned at Not on file Legal Sex Male 6:47 PM EDT Gender Identity Male 05/07/2023 8:14 AM EDT Sexual Orientation Not on file documented as of this encounter Plan of Treatment Upcoming Encounters Date Type Department Care Team (Late Contact Info) Description 07/03/2025 8:00 AM EDT Treatment [facility] [address] [facility] [address] [place] [address] Nathanael Prescott PTA 07/10/2025 8:00 AM EDT Office Visit [facility] [address] [place] [address] Santhosh Marte MD [address] [facility] [address] [place] [address] [place] [address], [place] [address] 07/14/2025 8:00 AM EDT Office Visit [facility] [place] [facility] [address] [place] [address] Mike López, DO [address] [place] [address] 07/17/2025 8:00 AM EDT Treatment [facility] [address] [place] [address] Nathanael Prescott, BRIDGETT 07/24/2025 11:40 AM EDT [facility] [address] [place] [address] Deejay Cooper DO [address] [place] [address] documented as of this encounter Visit Diagnoses Not on filedocumented in this encounter Care Teams Appraiser Oil And [employer] Relationship Specialty Start Date End Date Deejay Cooper DO [address] [place] [address] PCP - General Family Medicine 02/24/23 Deejay Cooper DO [address] [place] [address] PCP - [place] [employer] 12/30/24 Deejay Cooper DO [address] [place] [address] Family Medicine 02/24/23 documented as of this encounter
--- OUTSIDE RECORDS SUMMARY | 2025-06-28 00:03 | XMS_ITS | Encounter Summary ---
Author Organization [facility] Address [address] [facility] [place] [address] Care Team Providers Care Casing In Line Feeder Name Role Phone Deejay Cooper DO Primary Care Provider [phone] MalabarDeejay granados DO Unavailable [phone] MalabarDeejay granados DO Unavailable [phone] Encounter Details Date Type Department Care Team (Late Contact Info) Description 03/22/2023 Abstract [facility] [address] [place] [address] Jam Bergeron, PT [address] [place] [address] Social History Tobacco Use Types Packs/Day Years Used Date Smoking Tobacco: Never Smokeless Tobacco: Never Tobacco Cessation:Counseling Given: Not Answered Alcohol Use Standard Drinks/Week Comments Yes 0 [...] Physical Therapy [address] [place] [address] Nathanael Prescott PTA 07/10/2025 8:00 AM EDT Office Visit [facility] [place] [facility] [address] [place] [address] Santhosh Marte MD [address] [facility] [address] [place] [address] [place] [address], [place] [address] 07/14/2025 8:00 AM EDT Office Visit [facility] [place] [facility] [address] [place] [address] Mike López, DO [address] [place] [address] 07/17/2025 8:00 AM EDT Treatment [facility] [address] [place] [address] Nathanael Prescott, BRIDGETT 07/24/2025 11:40 AM EDT [facility] [address] [place] [address] Deejay Cooper DO [address] [place] [address] documented as of this encounter Visit Diagnoses Not on filedocumented in this encounter Care Teams Casing In Line Feeder Relationship Specialty Start Date End Date Deejay Cooper DO [address] [place] [address] PCP - General Family Medicine 02/24/23 Deejay Cooper DO [address] [place] [address] PCP - [place] [employer] 12/30/24 Deejay Cooper DO [address] [place] [address] Family Medicine 02/24/23 documented as of this encounter
--- OUTSIDE RECORDS SUMMARY | 2025-06-28 00:03 | XMS_ITS | Encounter Summary ---
Author Organization [facility] Address [address] [facility] [place] [address] Care Team Providers Care Guidance Services Coordinator Name Role Phone Deejay Cooper DO Primary Care Provider [phone] JulianDeejay granados DO Unavailable [phone] JulianDeejay granados DO Unavailable [phone] Encounter Details Date Type Department Care Team (Late st Contact Info) Description 04/29/2025 Orders Only [facility] Family Medicine 112 [facility] 100 [place] [address] David Lopez MD 112 [facility] [address] [place] [address] (Fax) Social History Tobacco Use Types Packs/Day Years Used Date Smoking Tobacco: Never Smokeless Tobacco: Never Alcohol Use Standard Drinks/Week Comments Yes 1 (1 standard drink = 0.6 oz pur [...] declined 07/25/2024 How often do you attend [facility] or episcopal services? More than 4 times per year 07/25/2024 Do you belong to any clubs o r organizations such as alevism groups, unions, fraternal or athletic groups, or [...] Recorded Patient Health Questionnaire-2 Score 0 04/08/2025 [facility] - Occupational Stress [...] money to buy more. Never true 07/25/20 Within the past 12 months, t he [...] any time in the past 12 m [facility], were you homeless or living in a fpc (including now)? No 07/25/2024 Sex and Gender [...] [facility] [address] [facility] [address] [place] [address] Nathanael Prescott, SADDLE CUTTER 07/10/2025 8:00 AM EDT Office Visit [facility] [address] [place] [address] Santhosh Marte MD 9[address] [facility] [address] [address] 07/14/2025 8:00 AM EDT Office Visit [facility] [address] [place] [address] Mike López, DO [address] [facility] [place] [address] 07/17/2025 8:00 AM EDT Treatment [facility] [address] [facility] [address] [place] [address] Nathanael Prescott, BRIDGETT 07/24/2025 11:40 AM EDT Office Visit [facility] [address] [place] [address] Deejay Cooper, DO [address] [place] [address] documented as of this encounter Visit Diagnoses Not on filedocumented in this encounter Additional Health Concerns Assessment Noted Time PHQ-9 Depression Total Score: 18 023 11:19 AM EDT documented as of this encounter Care Teams Guidance Services Coordinator Relationship Specialty Start Date End Date Deejay Cooper DO [address] [place] [address] PCP - General Family Medicine 02/24/23 Deejay Cooper DO [address] [place] [address] PCP - [facility] 12/30/24 Deejay Cooper DO [address] [facility] [address] [place] [address] Family Medicine 02/24/23 documented as of this encounter
--- OUTSIDE RECORDS SUMMARY | 2025-06-28 00:03 | XMS_ITS | Clinical Summary ---
Author Organization [facility] Address [address] [place] [address] Care Team Providers Care Camera Repairman Name Role Phone Deejay Cooper DO Primary Care Provider [phone] [place], Deejay Charles DO Unavailable [phone] [place], Deejay Charles DO Unavailable [phone] Allergies Active Allergy Reactions Criticality Noted Date Comments Clopidogrel 04/27/2023 Other Reaction(s): bleeding Codeine 04/27/2023 Other Reaction(s): itching Latex 04/27/2023 Other Reaction(s): Itching, sneezing Statins 04/27/2023 Other Reaction(s): severe myalgia Medications spironolactone (Aldactone) 25 MG tablet every 12 (twelve) hours Active dehydroepiandroste panfilo (DHEA) 50 MG tablet Take 25 mg by mouth Daily Active omega-3 (fish oil) 435 MG capsule 1 capsule 1 (one) time each day at the same time Active niacin 500 MG tablet 2,000 mg at bedtime Active meclizine (Antivert) 12.5 MG tablet if needed Active Magnesium Bisglycinate (Mag Glycinate) 100 MG tablet Take 2 tablets by mouth 1 (one) time each day at the same time Active azelastine (Astelin) 0.1 % nasal spray every 12 (twelve) hours Active albuterol HFA (Ventolin HFA) 90 mcg/act inhaler every 4 (four) hours Active cholecalciferol (D3 5000) 125 MCG (5000 UT) capsule Take by mouth Active vitamin E 180 MG (400 UNIT) capsule Take 180 mg by mouth Daily Active buPROPion XL (Wellbutrin XL) 150 MG 24 hr tabletIndications: Seasonal affective disorder Take 1 tablet (150 mg) by mouth in the morning. Do not crush, chew, or split.. 90 tablet 3 11/18/19 25 026 Active thyroid (WASHER AND CAPPER MACHINE OPERATOR Thyroid) 30 MG tabletIndications: Acquired hypothyroidism Take 1 tablet (30 mg) by mouth every 12 (twelve) hours 180 tablet 3 01/24/20 25 026 Active gemfibrozil (Lopid) 600 MG tabletIndications: Hypertriglyceridem ia Take 1 tablet (600 mg) by mouth in the morning and 1 tablet (600 mg) before bedtime. 180 tablet 3 01/24/20 25 026 Active anastrozole (Arimidex) 1 MG chemo tabletIndications: Hypotestosteronemi a Take 1 tablet (1 mg total) by mouth 3 (three) times a week. Swallow whole with a drink of water. 36 tablet 1 01/24/20 25 025 Active losartan (Cozaar) 100 MG tabletIndications: Primary hypertension Take 1 tablet (100 mg) by mouth in the morning. 90 tablet 3 01/24/20 25 Active nebivolol (Bystolic) 10 MG tabletIndications: Primary hypertension Take 1 tablet (10 mg) by mouth in the morning. May take additional dose prn. 120 tablet 3 01/24/20 25 Active orphenadrine (Norflex) 100 MG 12 hr tabletIndications: Cervical paraspinal muscle spasm,Cervical myelopathy (HCC) Take 1 tablet (100 mg) by mouth every 12 (twelve) hours 180 tablet 1 02/07/20 25 Active celecoxib (CeleBREX) 200 MG capsuleIndications :Fibromyalgia Take 1 capsule (200 mg) by mouth in the morning and 1 capsule (200 mg) before bedtime. 180 capsule 3 02/07/20 25 026 Active zolpidem (Ambien) 10 MG tabletIndications: Chronic insomnia Take 1 tablet (10 mg) by mouth as needed at bedtime for sleep 30 tablet 2 04/08/20 25 025 Active carisoprodol (Soma) 350 MG tabletIndications: S/P cervical spinal fusion,Cervical paraspinal muscle spasm Take 1 tablet (350 mg) by mouth Daily as needed for muscle spasms 90 tablet 04/08/20 25 025 Active clomiPHENE (Clomid) 50 MG tabletIndications: Hypotestosteronemi a Take 1 tablet on Sunday, half tablet on and Sunday 30 tablet 3 04/30/20 25 Active liothyronine (Cytomel) 5 MCG tabletIndications: Euthyroid sick syndrome Take half tablet po BID BERTIN; Sigma or Greenstone brands only 90 tablet 1 04/30/20 25 Active hydrocortisone (Cortef) 10 MG tabletIndications: Adrenal cortex hypofunction (HCC) Take 7.5mg in AM, 5mg at lunch, and 2.5mg at supper 135 tablet 3 04/30/20 25 Active pregabalin (Lyrica) 75 MG capsule Take 75 mg by mouth in the morning and 75 mg at noon and 75 mg in the evening. 05/29/20 25 026 Active Suzetrigine (Journavx) 50 MG tablet Take 50 mg by mouth 05/01/20 25 Active aspirin 81 MG EC tablet Take 81 mg by mouth 05/01/20 25 Active Umeclidinium-Vilan terol (Anoro Ellipta) 62.5-25 MCG/ACT aerosol powderIndications: Exertional dyspnea,Moderate persistent reactive airway disease without complication (HCC) Inhale 1 puff once per day 3 each 1 01/24/20 25 025 Discontin ued(Thera py completed ) gabapentin (Neurontin) 300 MG capsuleIndications :Cervical myelopathy (HCC) Take 1 capsule (300 mg) by mouth 3 (three) times a day as needed (radicular pain) 270 capsule 1 02/07/20 25 025 Discontin ued(Thera py completed ) Active Problems Problem Noted Date Diagnosed Date S/P cervical spinal fusion 01/04/2025 Cervical myelopathy 11/12/2024 MCI (mild cognitive impairment) 11/12/2024 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 Besbfbzmmmne-ckxfbjxaa-vemaqzt axis dysfunction 10/17/2024 Secondary adrenal insufficiency 10/17/2024 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 07/03/2024 Cervical radiculopathy 03/03/2024 Asymmetrical sensorineural hearing loss 07/20/20 Chronic fatigue 07/20/2023 Dyslipidemia 07/20/2023 Medication monitoring encounter 07/20/2023 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 Essential hypertension 07/20/2023 Fibromyalgia 07/20/2023 Hypotestosteronemia 07/20/2023 Chronic insomnia 07/20/2023 Overweight (BMI 25.0-29.9) 07/20/2023 Tinnitus of both ears 07/20/2023 Cervical paraspinal muscle spasm 02/28/2023 Cervical disc displacement 02/28/2023 S/P cervical disc replacement 02/28/2023 Resolved Problems Problem Noted Date Diagnosed Date Resolved Date Adrenal cortex hypofunction 07/20/2023 04/29/2025 Hormone imbalance 07/20/2023 10/17/2024 Primary sleep disturbance 07/20/2023 Encounters Date Type Department Care Team Description 06/19/2025 8:00 AM EDT Treatment [facility] [address] [facility] [address] [place] [address] Nathanael [place], FOAM FABRICATOR Left shoulder pain, unspecified chronicity (Primary Dx) 06/19/2025 Travel 06/09/2025 8:00 AM EDT Evaluation [facility] [address] [facility] [address] [place] [address] Marla Lew, PT Left shoulder pain, unspecified chronicity (Primary Dx) 06/09/2025 Plan of Care Documentation [facility] [address] [facility] [address] [place] [address] 06/09/2025 Bamboo flowsheet [facility] [address] [facility] [address] [place] [address] Marla Lew, PT 06/09/2025 Travel 06/02/2025 8:15 AM EDT Ancillary Procedure [facility] [address] [place] [address] 06/02/2025 8:15 AM EDT Office Visit [facility] [place] [facility] [address] [place] [address] Mike López DO Left shoulder pain, unspecified chronicity (Primary Dx) 06/02/2025 Bamboo flowsheet [facility] [place] [facility] [address] [place] [address] Mike López DO 06/02/2025 Travel 06/01/2025 Travel 05/06/20[address] Telephone [facility] [address] 112 [facility] [address] [place] [address] David Lopez MD 05/05/2025 Results Follow-Up [facility] [address] [place] [address] Go Galvan PA SALIVARY CORTISOL X4, TIMED 04/30/20[address]phone [facility] [address] 112 [facility] [address] [place] [address] Beba Cloud MA Care Coordination 04/29/20[address]phone [facility] [address] 112 [facility] [address] [place] [address] David Lopez MD 04/29/2025 Orders Only [facility] [address] 112 [facility] [address] [place] [address] David Lopez MD 04/13/2025 8:15 AM EDT Office Visit [facility] [address] [place] [phone] Mike López DO Left shoulder pain, unspecified chronicity (Primary Dx) 04/13/2025 Bamboo flowsheet [facility] [address] [facility] [address] [place] [place] [address] Mike López DO 04/13/2025 Travel 04/08/2025 11:00 AM EDT Office Visit [facility] [place] [facility] [address] [place] [address] Santhosh Marte MD Chronic insomnia; S/P cervical spinal fusion; Cervical paraspinal muscle spasm 04/08/2025 10:20 AM EDT Office Visit [facility] [address] [place] [address] Deejay [place], DO Central hypothyroidism (Primary Dx); Euthyroid sick syndrome; Hypothalamic-pituitar y-adrenal axis dysfunction (HCC); Secondary adrenal insufficiency (HCC); Mixed hyperlipidemia ; Primary hypertension ; Testosterone deficiency; Hypertriglyceridemia ; Type 2 diabetes mellitus with other specified complication, without long-term current use of insulin (HCC) 04/08/2025 Bamboo flowsheet [facility] [address] [place] [address] Deejay [place], 04/08/2025 Travel 04/06/2025 Orders Only [facility] External Department Unsolicited Deejay [place], 04/06/2025 Abstract [facility] [address] [place] [address] Deejay [place], 03/30/2025 Results Follow-Up [facility] [address] [place] [address] Deejay [place], DO Hemoglobin A1c from Last 3 Months Immunizations Immunization Administration Dates Next Due Pfizer Bivalent Booster 12 Years And Older 06/22 Family History Medical History Relation Name Comments Lung disease Father Prostate cancer Father Asthma Mother Jo-Ann Dementia Mother Jo-Ann Depression Mother Jo-Ann Fibromyalgia Mother Jo-Ann Hyperlipidemia Mother Jo-Ann Insomnia Mother Jo-Ann Thyroid disease Mother Jo-Ann Thyroid disease Sister lyme disease Sister thyroid Sister Relation Name Status Comments Daughter Alive 2 daughters Father Mother Jo-Ann Alive Sister 3 sisters Social History Tobacco Use Types Packs/Day Years Used Date Smoking Tobacco: Never Smokeless Tobacco: Never Tobacco Cessation:Counseling Given: Not Answered Alcohol Use Standard Drinks/Week Comments Yes 7 [...] declined 07/25/2024 How often do you attend chur ch or presybeterian services? More than 4 times per year 07/25/2024 Do you belong to any clubs o r organizations such as yarsanism groups, unions, fraternal or athletic groups, or [...] Recorded Patient Health Questionnaire-2 Score 0 04/08/2025 [facility] - [facility]ational Stress Questionnaire Answer Date Recorded [...] any time in the past 12 m [facility], were you homeless or living in a [facility] (including now)? No 07/25/2024 Sex and Gender Information Value Date Recorded Sex Assigned at Not on file Legal Sex Male 6:47 PM EDT Gender Identity Male 05/07/2023 8:14 AM EDT Sexual Orientation Not on file Last Filed Vital Signs Vital Sign Reading Time Taken Comments Blood Pressure 132/84 04/08/2025 11:21 AM EDT Pulse 65 04/08/2025 10:34 AM EDT Temperature 35.6 C (96.1 F) 04/08/2025 10:34 AM EDT Respiratory Rate - - Oxygen Saturation 97% 04/08/2025 10:34 AM EDT Inhaled Oxygen Concentration - - Weight 71.7 kg (158 lb) 04/13/2025 8:10 AM EDT Height 172.7 cm (5' 8 ) 04/13/2025 8:10 AM EDT Body Mass Index 24.02 04/13/2025 8:10 AM EDT Plan of Treatment Upcoming Encounters Date Type Department Care Team (Late st Contact Info) Description 07/03/2025 8:00 AM EDT Treatment [facility] [address] [place] [address] Nathanael [place] PTA 07/10/2025 8:00 AM EDT Office Visit [facility] [address] [place] [address] Santhosh Marte MD [address] [facility] [address] [place] [address] [place] [address] 07/14/2025 8:00 AM EDT Office Visit [facility] [place] [facility] [address] [place] [address] Mike López, DO [address] [place] [address] 07/17/2025 8:00 AM EDT Treatment [facility] [address] [place] [address] Nathanael [place] PTA 07/24/2025 11:40 AM EDT Office Visit [facility] [place] [facility] [address] [place] [address] Deejay [place], DO [address] [place] [address] Health Maintenance Due Date Last Done Comments CT Colonography 1960 FIT-DNA 1960 FIT 1960 FOBT 1960 Sigmoidoscopy 1960 Diabetes: Retinopathy Screening 1970 Diabetes: Urine Protein Screening 01/13/2025 024 Influenza Vaccine (#1) 2025 Diabetes: Hemoglobin A1C 06/27/2025 025, 01/11/2024, 08/22/2023, Additional history exists Colonoscopy 09/26/2031 09/26/2021 Colorectal Cancer Screening 09/26/2031 Procedures Procedure Name Priority Date/Time Associated Diagnosis Comments XR SHOULDER 2+ VIEWS LEFT Routine 06/02/2025 8:12 AM EDT Left shoulder pain, unspecified chronicity SALIVARY CORTISOL Routine 04/29/2025 10: 28 AM EDT Secondary adrenal insufficiency (HCC) Adrenal cortex hypofunction (HCC) Chronic fatigue SALIVARY CORTISOL X4, TIMED Routine 04/06/2025 12:00 AM EDT HEMOGLOBIN A1C Routine 03/27/2025 11:27 AM EDT Type 2 diabetes mellitus with other specified complication, without long-term current use of insulin (HCC) POCT MICROALBUMIN Routine 01/14/2024 10: 02 AM EDT Essential hypertension COLONOSCOPY Routine 09/26/2021 12:00 PM EST Encounter for screening for malignant neoplasm of colon from Last 3 Months or Most Recently Relevant to Health Maintenance Results * XR shoulder 2+ views left (06/02/2025 8:12 AM EDT) Anatomical Region Laterality Modality Upper Extremities, Shoulder Left Radi ographic Imaging Narrative 06/02/2025 8:37 AM EDT Imaging Result: 3 views left shoulder, Grashey/Zanca/outlet, taken today and saved to the permanent medical record are reviewed. Evidence of acromioplasty. No fractures. us Mike López DO IMG XR PROCEDURES Final Result * Salivary Cortisol (04/29/2025 10:28 AM EDT) Saliva Salivary gland structure / Unknown us Deejay Cooper DO LAB BODY FLUIDS AND STOOLS O RDERABLES Final Result [facility] * SALIVARY CORTISOL X4, TIMED (04/06/2025 12:00 AM EDT) #1 SALIVARY CORTISOL 1.880 ug/dL [facility] Comment: Confirmed by dilution. This test was developed and its performance characteristics determined by [facility]. It has not been cleared or approved by the Food and Drug Administration. Draw date/time: 04/06/25 - 06:15 Reference Range: Children and Adults: 8:00a.m.: 0.025 - 0.600 Noon: <0.010 - 0.330 4:00p.m.: 0.010 - 0.200 Bedtime (9:00p.m.-Midnight): <0.010 - 0.090 #2 SALIVARY CORTISOL >1.000 ug/dL [facility] Comment: The elevated cortisol concentration in this saliva specimen may be due to contamination during collection. We detected an abnormal ratio of cortisol relative to other glucocorticoid metabolites. This can be caused by application of hydrocortisone lotions or creams prior to saliva collection. When collecting saliva for cortisol analysis please refrain from using any topical cortisol (hydrocortisone) products for 24 hours prior to the collection. Always wash hands thoroughly before touching the collection device. Draw date/time: 04/06/25 - 12:45 #3 SALIVARY CORTISOL >1.000 ug/dL [facility] Comment: The elevated cortisol concentration in this saliva specimen may be due to contamination during collection. We detected an abnormal ratio of cortisol relative to other glucocorticoid metabolites. This can be caused by application of hydrocortisone lotions or creams prior to saliva collection. When collecting saliva for cortisol analysis please refrain from using any topical cortisol (hydrocortisone) products for 24 hours prior to the collection. Always wash hands thoroughly before touching the collection device. Draw date/time: 04/06/25 - 17:30 #4 SALIVARY CORTISOL 0.222 ug/dL [facility] Comment:Draw date/time: 04/24 - 23:05 04/06/2025 04/07/2025 Narrative [facility] - 04/17/2025 8:07 AM EDT Performed at: [facility] [address] [place] [id number] Account Installation Specialist: Joshua Peacock MD, Phone: [phone] us Deejay Cooper DO LAB BLOOD ORDERABLES Final R esult [facility] * Hemoglobin A1c (03/27/2025 11:27 AM EDT) [facility] Hemoglobin A1C 5.5 <5.7 % [facility] Comment: For the purpose of screening for the presence of diabetes: <5.7% Consistent with the absence of diabetes 5.7-6.4% Consistent with increased risk for diabetes (prediabetes) > or =6.5% Consistent with diabetes This assay result is consistent with a decreased risk of diabetes. Currently, no consensus exists regarding use of hemoglobin A1c for diagnosis of diabetes in children. According to [place] Diabetes Association (ADA) guidelines, hemoglobin A1c <7.0% represents optimal control in non- diabetic patients. Different metrics may apply to specific patient populations. Standards of Medical Care in Diabetes(ADA). Blood Venous blood specimen / Unknown 03/27/2025 11:27 AM EDT 03/27/2025 11:27 AM EDT Narrative [facility] - 03/28/2025 3:41 AM EDT MULTIPLE TESTING PRIORITIES; ROUTINE TESTING TO FOLLOW. Resulting Agency Comment Performing Organization Information Site ID: QPT Name: [facility] Address: [address] [place] [address], [address] [place] [phone] Director: Des Malik MD Deejay Cooper DO LAB BLOOD ORDERABLES Final R esult [facility] * POCT microalbumin manually resulted (01/14/2024 10:02 AM EDT) MICROALBUMIN, URINE 10 ALB/CREAT RATIO 100 URINE CREAT 0.1 Urine 01/14/2024 10:0 2 AM EDT David Lopez MD POINT OF CARE TEST ENTER/PANCHITO T ORDERABLES Final Result * Colonoscopy (09/26/2021 12:00 PM EST) Anatomical Region Laterality Modality Endoscopy 09/26/2021 12:0 0 PM EST Narrative 09/26/2021 12:00 PM EST PERFORMED AT [facility] LOCATION:[id number] Procedure Note CONVERSION, GENERIC - 02/14/2023 PERFORMED AT [facility] LOCATION:[id number] Fritz Stoll DO ENDOSCOPY PROCEDURE ORDER RYAN Final Result from Last 3 Months or Most Recently Relevant to Health Maintenance Insurance [facility] Advance Directives Documents on File Type Date Recorded Patient Kettle Loader Expl anation Power of Vegetable Scullion 04/13/2025 12:20 PM 2024 Power Of Vegetable Scullion-Living will Advance Directives and Living Will 03/12/2024 8:03 AM 2024-02-27 Advance Directives Advance Directives and Living Will 07/06/2021 2020-04-15 Healthcar e power of Vegetable Scullion Advance Directives and Living Will 07/06/2021 2020-04-15 Living Wi Care Teams Camera Repairman Relationship Specialty Start Date End Date Deejay Cooper DO [address] [place] [address] PCP - General Family Medicine 02/24/23 Deejay Cooper DO [address] [place] [address] PCP - [facility] 12/30/24 Deejay Cooper DO [address] [place] [address] Family Medicine 02/24/23
--- OUTSIDE RECORDS SUMMARY | 2025-06-28 00:03 | XMS_ITS | Encounter Summary ---
Author Organization [facility] Address [address] [place] [address] Care Team Providers Care Activity Assistant Name Role Phone Deejay [place] DO Primary Care Provider [phone] PauldenDeejay DO Unavailable [phone] PauldenDeejay granados DO Unavailable [phone] Encounter Details Date Type Department Care Team (Late st Contact Info) Description 11/26/2023 Orders Only [facility] [address] [place] [address] David Lopez MD [address] [facility] [address] [place] [address] Social History Tobacco Use Types Packs/Day Years Used Date Smoking Tobacco: Never Smokeless Tobacco: Never Alcohol Use Standard Drinks/Week Comments Yes 1 (1 standard drink = 0.6 oz pur e alcohol) caffeine: coffee, tea PHQ-2 Answer Date Recorded Patient Health Questionnaire-2 Score 0 10/26/2023 Sex and Gender Information Value Date Recorded [...] Physical Therapy [address] [place] [address] Nathanael [place], GROCERY STORE CLERK 07/10/2025 8:00 AM EDT Office Visit [facility] [address] [place] [address] Santhosh Marte MD [address] [facility] [address] [place] [place] [address], [place] [address] 07/14/2025 8:00 AM EDT Office Visit [facility] [address] [place] [address] Mike López, DO [address] [place], [place] [id number] 07/17/2025 8:00 AM EDT Treatment [facility] [address] [facility] [address] [place] [address] Nathanael [place], GROCERY STORE CLERK 07/24/2025 11:40 AM EDT [facility] [address] [place] [address] Deejay [place] DO [address] [place] [address] documented as of this encounter Visit Diagnoses Not on filedocumented in this encounter Additional Health Concerns Assessment Noted Time PHQ-9 Depression Total Score: 18 023 11:19 AM EDT documented as of this encounter Care Teams Activity Assistant Relationship Specialty Start Date End Date Deejay Cooper DO [address] [place] [address] PCP - General Family Medicine 02/24/23 Deejay Cooper DO [address] [place] [address] PCP - [employer] 12/30/24 Deejay Cooper DO [address] [facility] [address] [place] [id number] Family Medicine 02/24/23 documented as of this encounter
--- OUTSIDE RECORDS SUMMARY | 2025-06-28 00:03 | XMS_ITS | Encounter Summary ---
Author Organization [facility] Address [address] [place] [address] Care Team Providers Care Ammonia Print Operator Name Role Phone LangleyDeejay granados DO Primary Care Provider + [phone] AllisonDeejay DO Unavailable [phone] AllisonDeejay DO Unavailable [phone] Encounter Details Date Type Department Care Team (Latest Contact Info) Description 06/19/2025 Travel Social History Tobacco Use Types Packs/Day Years [...] often do you attend chur ch or buddhist services? More than 4 times per year 07/25/2024 Do you belong to any clubs o r organizations such as yazidism groups, unions, fraternal or athletic groups, or [...] Recorded Patient Health Questionnaire-2 Score 0 04/08/2025 [employer] [facility] - Occupational Stress [...] any time in the past 12 m [facility], were you homeless or living in a penitentiary (including now)? No 07/25/2024 Sex and Gender [...] Therapy [address] [place] [address] Nathanael [place], BRIDGETT 07/10/2025 8:00 AM EDT Office Visit [facility] [place] [facility] [address] [place] [address] Santhosh Marte MD [address] [facility] [address] [place] [id number] 07/14/2025 8:00 AM EDT Office Visit [facility] [place] [facility] [address] [place] [address] Mike López, [address] [place] [address] 07/17/2025 8:00 AM EDT Treatment [facility] [address] [place] [address] Nathanael [place], BRIDGETT 07/24/2025 11:40 AM EDT Office Visit [facility] [facility] [address] [place] [address] Deejay [place] DO [address] [place], [place] [phone] documented as of this encounter Visit Diagnoses Not on filedocumented in this encounter Additional Health Concerns Assessment Noted Time PHQ-9 Depression Total Score: 18 023 11:19 AM EDT documented as of this encounter Care Teams Ammonia Print Operator Relationship Specialty Start Date End Date Deejay Cooper DO [address] [place] [address] PCP - General Family Medicine 02/24/23 Deejay Cooper DO [address] [place] [address] PCP - [facility] 12/30/24 Deejay Cooper DO [address] [place] [address] Family Medicine 02/24/23 documented as of this encounter
--- OUTSIDE RECORDS SUMMARY | 2025-06-28 00:03 | XMS_ITS | Encounter Summary ---
Author Organization [facility] Address [address] [facility] [place] [address] Care Team Providers Care Intellectual Property Lawyer Name Role Phone Deejay Cooper DO Primary Care Provider [phone] IndianDeejay DO Unavailable [phone] Indian, Deejay Charles DO Unavailable [phone] Encounter Details Date Type Department Care Team (Late Contact Info) Description 04/05/2023 Abstract [facility] [address] [place] [phone] Santhosh Marte MD [address] [place] [address] Social History Tobacco Use Types Packs/Day Years Used Date Smoking Tobacco: Never Smokeless Tobacco: Never Tobacco Cessation:Counseling Given: Not Answered Alcohol Use Standard Drinks/Week Comments Yes 1 [...] EDT Treatment [facility] [address] [facility] 170 [place] [address] Nathanael Prescott PTA 07/10/2025 8:00 AM EDT Office Visit [facility] [place] [facility] [address] [place] [address] Santhosh Marte MD [address] [facility] [address] [place] [address] 07/14/2025 8:00 AM EDT Office Visit [facility] [place] [facility] [address] [place] [address] Mike López, DO [address] [place] [address] 07/17/2025 8:00 AM EDT Treatment [facility] [address] [place] [address] Nathanael Prescott, SPINNER TENDER 07/24/2025 11:40 AM EDT [facility] [address] [place] [address] Deejay Cooper DO [address] [place] [address] documented as of this encounter Visit Diagnoses Not on filedocumented in this encounter Care Teams Intellectual Property Lawyer Relationship Specialty Start Date End Date Deejay Cooper DO [address] [place] [address] PCP - General Family Medicine 02/24/23 Deejay Cooper DO [address] [place] [address] PCP - [place] [employer] 12/30/24 Deejay Cooper DO [address] [place] [address] Family Medicine 02/24/23 documented as of this encounter
--- OUTSIDE RECORDS SUMMARY | 2025-06-28 00:03 | XMS_ITS | Encounter Summary ---
Author Organization [facility] Address [address] [place] [address] Care Team Providers Care Tool Programmer Name Role Phone Allison Deejay Charles DO Primary Care Provider Deejay Cooper DO Unavailable Deejay Cooper DO Unavailable [phone] Encounter Details Date Type Department Care Team (Late st Contact Info) Description 04/30/2023 Orders Only [facility] [place] [facility] [address] [place] [address] Deejay Cooper, DO [address] [place] [address] Primary hypertension (Primary Dx) Social History Tobacco Use Types [...] AM EDT Sexual Orientation Not on file COVID-19 Exposure Response Date Recorded In the last 10 days, have yo u been in contact with someone who was confirmed or suspected to have Coronavirus/COVID-19? No / Unsure 04/27/2023 6:24 AM EDT documented as of this encounter Plan of Treatment Upcoming Encounters Date Type Department Care Team (Late Contact Info) Description 07/03/2025 8:00 AM EDT Treatment [facility] [address] [place] [address] Nathanael Prescott, MATERIALS ASSISTANT 07/10/2025 8:00 AM EDT Office [facility] [address] [place] [address] Santhosh Marte MD [address] [facility] [address] [place] [address] [id number] 07/14/2025 8:00 AM EDT Office Visit [facility] [place] [facility] [address] [place] [address] Mike López, DO [address] [place] [address] 07/17/2025 8:00 AM EDT Treatment [facility] [address] [place] [address] Nathanael Prescott, MATERIALS ASSISTANT 07/24/2025 11:40 AM EDT Office Visit [facility] [address] [place] [address] Deejay Cooper DO [address] [place] [address] documented as of this encounter Visit Diagnoses Diagnosis Primary hypertension- Primary Unspecified essential hypertension documented in this encounter Care Teams Tool Programmer Relationship Specialty Start Date End Date Deejay Cooper DO [address] [place] [address] PCP - General Family Medicine 02/24/23 Deejay Cooper DO [address] [place] [address] PCP - [place] [employer] 12/30/24 Deejay Cooper DO [address] [place] [address] Family Medicine 02/24/23 documented as of this encounter
--- OUTSIDE RECORDS SUMMARY | 2025-06-28 00:04 | XMS_ITS | Encounter Summary ---
Author Organization [facility] Address [address] [place] [address] Care Team Providers Care Energy Economist Name Role Phone Deejay Cooper DO Primary Care Provider [phone] Deejay Cooper DO Unavailable [phone] Deejay Cooper DO Unavailable [phone] Encounter Details Date Type Department Care Team (Late st Contact Info) Description 11/07/2024 Abstract [facility] [place] [facility] [address] [place] [address] Deejay Cooper DO [address] [facility] [address] [place] [address] Social History Tobacco Use Types Packs/Day Years [...] declined 07/25/2024 How often do you attend [facility] or faith services? More than 4 times per year 07/25/2024 Do you belong to any clubs o r organizations such as gnosticist groups, unions, fraternal or athletic groups, or [...] Date Recorded Patient Health Questionnaire-2 Score 0 07/25/2024 [facility] - Occupational Stress [...] in the past 12 m [facility], were you homeless or living in a nursing home (including now)? No 07/25/2024 Sex and Gender [...] [facility] [address] [facility] [address] [place] [address] Nathanael Prescott, BRIDGETT 07/10/2025 8:00 AM EDT Office Visit [facility] [address] [place] [address] Santhosh Marte MD [address] [facility] [address] [address] 07/14/2025 8:00 AM EDT Office Visit [facility] [address] [place] [address] Mike López, DO [address] [facility] [place] [address] 07/17/2025 8:00 AM EDT Treatment [facility] [address] [place] [address] Nathanael Prescott, BRIDGETT 07/24/2025 11:40 AM EDT Office Visit [facility] [address] [place] [address] Deejay Cooper DO [address] [place] [address] documented as of this encounter Visit Diagnoses Not on filedocumented in this encounter Additional Health Concerns Assessment Noted Time PHQ-9 Depression Total Score: 18 023 11:19 AM EDT documented as of this encounter Care Teams Energy Economist Relationship Specialty Start Date End Date Deejay Cooper DO [address] [facility] 230 [place] [address] PCP - General Family Medicine 02/24/23 Deejay Cooper DO [address] [facility] 230 [place] [address] PCP - [facility] 12/30/24 Deejay Cooper DO [address] [facility] 230 [place] [address] Family Medicine 02/24/23 documented as of this encounter
--- OUTSIDE RECORDS SUMMARY | 2025-06-28 00:04 | XMS_ITS | Encounter Summary ---
Author Organization [facility] Address [address] [facility] [place] [address] Care Team Providers Care Blanking Press Operator Name Role Phone Deejay Cooper DO Primary Care Provider [phone] ShilohDeejay DO Unavailable [phone] ShilohDeejay DO Unavailable [phone] Encounter Details Date Type Department Care Team (Late st Contact Info) Description 07/03/2024 Orders Only [facility] [address] [place] [address] David Lopez MD [address] [place] [address] Central hypothyroidism (Primary Dx); Hypotestosteronemia; Chronic fatigue; Euthyroid sick syndrome; 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 Social History Tobacco Use Types Packs/Day Years Used Date Smoking Tobacco: Never Smokeless Tobacco: Never Alcohol Use Standard Drinks/Week Comments Yes 1 (1 standard drink = 0.6 oz pur e alcohol) caffeine: coffee, tea PHQ-2 Answer Date Recorded Patient Health Questionnaire-2 Score 0 01/25/2024 Sex and Gender Information Value Date Recorded Sex Assigned at Not on file Legal Sex Male 6:47 PM EDT Gender Identity Male 05/07/2023 8:14 AM EDT Sexual Orientation Not on file documented as of this encounter Plan of Treatment Upcoming Encounters Date Type Department Care Team (Late st Contact Info) Description 07/03/2025 8:00 AM EDT Treatment [facility] [address] [place] [address] Nathanael Prescott, LEAF SUCKER OPERATOR 07/10/2025 8:00 AM EDT Office Visit [facility] [address] [place] [address] Santhosh Marte MD [address] [facility] [address] [place] [phone] 07/14/2025 8:00 AM EDT Office Visit [facility] [place] [facility] [address] [place] [address] Mike López, DO [address] [place] [address] 07/17/2025 8:00 AM EDT Treatment [facility] [address] [place] [address] Nathanael Prescott, LEAF SUCKER OPERATOR 07/24/2025 11:40 AM EDT Office Visit [facility] [place] [facility] [address] [place] [address] Deejay Cooper DO [address] [place] [address] documented as of this encounter Visit Diagnoses Diagnosis Central hypothyroidism- Primary Unspecified hypothyroidism Hypotestosteronemia Chronic fatigue Other malaise and fatigue 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
--- OUTSIDE RECORDS SUMMARY | 2025-06-28 00:04 | XMS_ITS | Clinical Summary ---
Author Organization [facility] Address [address] [facility], [address] [place] [address] Care Team Providers Care Child Care Counselor Name Role Phone Deejay Cooper MD Primary Care Provider [phone] Allergies No known active allergies Medications albuterol sulfate HFA (PROVENTIL;VENTOL IN;PROAIR) 108 (90 Base) MCG/ACT inhaler every 4 hours Active anastrozole (ARIMIDEX) 1 MG tablet TAKE 1 TABLET BY MOUTH THREE TIMES A WEEK. SWALLOW WHOLE WITH A DRINK OF WATER. 4 Active azelastine (ASTELIN) 0.1 % nasal spray every 12 hours Active celecoxib (CELEBREX) 200 MG capsule Take 1 capsule by mouth 2 times daily 4 09/07/20 25 Active vitamin D (CHOLECALCIFEROL) 125 MCG (5000 UT) CAPS capsule Take by mouth Active clomiPHENE (CLOMID) 50 MG tablet Take 1 tablet by mouth three times a week 4 Active gabapentin (NEURONTIN) 600 MG tablet Take 0.5 tablets by mouth as needed. Active gemfibrozil (LOPID) 600 MG tablet Take 1 tablet by mouth 2 times daily 4 Active hydrocortisone (CORTEF) 10 MG tablet Take 1 tablet orally in the morning and half tablet at lunchtime, 90 days 4 Active liothyronine (CYTOMEL) 5 MCG tablet TAKE 1 TABLET BY MOUTH EVERY MORNING AND TAKE 1/2 TABLET BY MOUTH EVERY NIGHT AT BEDTIME 4 Active losartan (COZAAR) 100 MG tablet Take 1 tablet by mouth every morning 4 Active Magnesium Bisglycinate (MAG GLYCINATE) 100 MG TABS Take 2 tablets by mouth every 24 hours Active meclizine (ANTIVERT) 12.5 MG tablet as needed Active methocarbamol (ROBAXIN) 750 MG tablet Take 1 tablet by mouth 2 times daily 4 Active nebivolol (BYSTOLIC) 10 MG tablet Take 1 tablet by mouth every morning 4 Active niacin 500 MG tablet 4 tablets nightly Active [place]-3 Fatty Acids (FISH OIL CONCENTRATE) 435 MG CAPS 1 capsule every 24 hours Active orphenadrine (NORFLEX) 100 MG extended release tablet every 12 hours Active DHEA 50 MG TABS Take 25 mg by mouth daily Active spironolactone (ALDACTONE) 25 MG tablet every 12 hours Active thyroid (ARMOUR) 30 MG tablet Take 1 tablet by mouth in the morning and 1 tablet in the evening. 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 07/20/20 23 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 Chronic fatigue 07/20/2023 Dyslipidemia 07/20/2023 Essential hypertension 07/20/2023 Chronic insomnia 07/20/2023 Fibromyalgia 07/20/2023 Hypotestosteronemia 07/20/2023 Medication monitoring encounter 07/20/2023 Primary sleep disturbance 07/20/2023 Tinnitus of both ears 07/20/2023 Cervical disc displacement 02/28/2023 Cervical paraspinal muscle spasm 02/28/2023 S/P cervical disc replacement 02/28/2023 Encounters Date Type Department Care Team Description 05/01/2025 [facility] [address] [facility] [address] [place] [id number] Saji Domínguez MD OFFICE NOTES from Last 3 Months Social History Tobacco Use Types Packs/Day Years Used Date Smoking Tobacco: Never Smokeless Tobacco: Never Tobacco Cessation:Counseling Given: Not Answered Alcohol Use Standard Drinks/Week Comments Yes 0 (1 standard drink = 0.6 oz pur e alcohol) Sex and Gender Information Value Date Recorded Sex Assigned at Not on file Legal Sex Male 11:24 PM EST Gender Identity Not on file Sexual Orientation Not on file Last Filed Vital Signs Vital Sign Reading Time Taken Comments Blood Pressure 112/82 11/26/2024 10:07 AM EST Pulse - - Temperature - - Respiratory Rate 16 02/02/2025 10:21 AM EDT Oxygen Saturation - - Inhaled Oxygen Concentration - - Weight 69.4 kg (153 lb) 02/02/2025 10:21 AM EDT Height 172.7 cm (5' 8 ) 02/02/2025 10:21 AM EDT Body Mass Index 23.26 02/02/2025 10:21 AM EDT Plan of Treatment Health Maintenance Due Date Last Done Comments Depression Screen 1972 HIV screen 1975 Hepatitis C screen 1978 DTaP/Tdap/Td vaccine (1 - Tdap) 1979 Lipids 2000 Colonoscopy 2005 Colorectal Cancer Screen 2005 FIT/FOBT: Average risk 2005 Fecal-DNA (Cologuard): [place] risk 2005 Sigmoidoscopy/CT colonography 2005 Pneumococcal 50+ years Vacci ne (1 of 1 - PCV) 2010 Shingles vaccine (1 of 2) 2010 Respiratory Syncytial Virus (RSV) or age 60 yrs+ (1 - Risk 60-74 years 1-dose series) 2020 COVID-19 Vaccine (2 - Pfizer risk series) 07/13/2022 06/22/2022 Flu vaccine (#1) 05/01/2025 Hepatitis A vaccine Aged Out No longe r eligible based on patient's age to complete this topic Hepatitis B vaccine Aged Out No longe r eligible based on patient's age to complete this topic Hib vaccine Aged Out No longer eligi ble based on patient's age to complete this topic Meningococcal (ACWY) vaccine Aged Out No longer eligible based on patient's age to complete this topic Meningococcal B vaccine Aged Out No l onger eligible based on patient's age to complete this topic Polio vaccine Aged Out No longer elig ible based on patient's age to complete this topic Insurance BCBS OUT OF STATE Care Teams Child Care Counselor Relationship Specialty Start Date End Date Deejay Cooper MD [address] [place] [address] PCP - General 01/29/25
--- OUTSIDE RECORDS SUMMARY | 2025-06-28 00:04 | XMS_ITS | Encounter Summary ---
Author Organization [facility] Address [address] [place] [address] Care Team Providers Care Hand Plate Stacker Name Role Phone Deejay Cooper DO Primary Care Provider [phone] Deejay Cooper DO Unavailable [phone] Deejay Cooper DO Unavailable [phone] Encounter Details Date Type Department Care Team (Late st Contact Info) Description 04/06/2025 Abstract [facility] [place] [facility] 230 [address] [facility] [facility] [facility] [address] [place] [address] Deejay Cooper DO [address] [facility] [address] [place] [address] Social History Tobacco Use Types Packs/Day Years [...] declined 07/25/2024 How often do you attend [facility] or islam services? More than 4 times per year 07/25/2024 Do you belong to any clubs o r organizations such as jewish groups, unions, fraternal or athletic groups, or [...] Recorded Patient Health Questionnaire-2 Score 0 04/08/2025 [facility] - Occupational [...] any time in the past 12 m [facility], were you homeless or living in a penitentiary (including now)? No 07/25/2024 Sex and Gender Information Value Date Recorded Sex Assigned at Not on file Legal Sex Male 6:47 PM EDT Gender Identity Male 05/07/2023 8:14 AM EDT Sexual Orientation Not on file documented as of this encounter Functional Status * Over the past 2 weeks, how often have you been bothered by any of the following problems? Question Answer Date of Assessment Author Little interest or pleasure in doing things Not at all 04/08/2025 10:33 AM EDT Ingris Negro M A Feeling down, depressed, or hopeless Not at all 04/08/2025 10:33 AM EDT Ingris Negro M A Patient Health Questionnaire -2 Score 0 04/08/2025 10:33 AM EDT Ingris Negro M A documented as of this encounter Plan of Treatment Upcoming Encounters Date Type Department Care Team (Late st Contact Info) Description 07/03/2025 8:00 AM EDT Treatment [facility] [address] [facility] [address] [place] [address] Nathanael Prescott PTA 07/10/2025 8:00 AM EDT Office Visit [facility] [address] [place] [address] Santhosh Marte MD [address] [facility] [address] [place] [address] 07/14/2025 8:00 AM EDT Office Visit [facility] [address] [place] [address] Mike López, [address] [facility] [place] [address] 07/17/2025 8:00 AM EDT Treatment [facility] [address] [place] [address] Memo Prescottall, COMPUTER HELP DESK SPECIALIST 07/24/2025 11:40 AM EDT Office Visit [facility] [place] [facility] [address] [place] [address] Deejay Cooper DO [address] [place] [address] documented as of this encounter Visit Diagnoses Not on filedocumented in this encounter Additional Health Concerns Assessment Noted Time PHQ-9 Depression Total Score: 18 023 11:19 AM EDT documented as of this encounter Care Teams Hand Plate Stacker Relationship Specialty Start Date End Date Deejay Cooper DO [address] [place] [address] PCP - General Family Medicine 02/24/23 Deejay Cooper DO [address] [place] [address] PCP - [place] [employer] 12/30/24 Deejay Cooper DO [address] [place] [address] Family Medicine 02/24/23 documented as of this encounter
--- OUTSIDE RECORDS SUMMARY | 2025-06-28 00:04 | XMS_ITS | Encounter Summary ---
Author Organization [facility] Address [address] [facility] [place] [address] Care Team Providers Care Residential Leasing Manager Name Role Phone Deejay Coopre DO Primary Care Provider [phone] [place], Deejay Charles DO Primary Care Provider [phone] [place], Deejay L DO Unavailable [phone] [place], Deejay Charles DO Unavailable [phone] Encounter Details Date Type Department Care Team (Late st Contact Info) Description 02/18/2023 Abstract [facility] [address] [place] [address] Jam Bergeron, PT [address] [place] [address] Social History Tobacco Use Types Packs/Day Years Used Date Smoking Tobacco: Never Tobacco Cessation:Counseling Given: Not Answered [...] Physical Therapy [address] [place] [address] Nathanael Prescott GROUP ACCOUNT DIRECTOR 07/10/2025 8:00 AM EDT Office [facility] [address] [place] [address] Santhosh Marte MD [address] [facility] [address] [place] [address] 07/14/2025 8:00 AM EDT Office [facility] [address] [place] [address] Mike López, DO [address] [place] [address] 07/17/2025 8:00 AM EDT Treatment [facility] [address] [facility] [address] [place] [address] Nathanael Prescott, GROUP ACCOUNT DIRECTOR 07/24/2025 11:40 AM EDT Office Visit [facility] [address] [place] [address] Deejay Cooper DO [address] [place] [address] documented as of this encounter Visit Diagnoses Not on filedocumented in this encounter Care Teams Residential Leasing Manager Relationship Specialty Start Date End Date Deejay Cooper DO [address] [place] [address] PCP - General Family Medicine 02/06/23 02/23/23 Deejay Cooper DO [address] [place] [address] PCP - General Family Medicine 02/24/23 Deejay Cooper DO [address] [place] [address] PCP - [place] [employer] 12/30/24 Deejay Cooper DO [address] [place] [id number] Family Medicine 02/24/23 documented as of this encounter
--- OUTSIDE RECORDS SUMMARY | 2025-06-28 00:04 | XMS_ITS | Encounter Summary ---
Author Organization [facility] Address [address] [place] [address] Care Team Providers Care Manager Audit Name Role Phone Deejay Cooper DO Primary Care Provider [phone] [place]jay DO Unavailable [phone] [place]Deejay granados DO Unavailable [phone] Encounter Details Date Type Department Care Team (Late st Contact Info) Description 03/14/2024 Orders Only [facility] [address] [place] [facility] [address] David Lopez MD [address] [facility] [address] [place] [address] Social History Tobacco Use Types Packs/Day Years [...] Physical Therapy [address] [place] [id number] Nathanael Prescott, [employer]M BUILDER 07/10/2025 8:00 AM EDT Office Visit [facility] [address] [place] [address] Santhosh Marte MD [address] [facility] [address] [place] [address] [place] [address], [place] [address] 07/14/2025 8:00 AM EDT Office Visit [facility] [place] [facility] [address] [place] [address] Mike López, DO [address] [place], [place] [id number] 07/17/2025 8:00 AM EDT Treatment [facility] [address] [facility] [address] [place] [address] Nathanael Prescott, WO[employer] FORM BUILDER 07/24/2025 11:40 AM EDT Office Visit [facility] [address] [place] [phone] Deejay Cooper DO [address] [place] [address] documented as of this encounter Visit Diagnoses Not on filedocumented in this encounter Additional Health Concerns Assessment Noted Time PHQ-9 Depression Total Score: 18 023 11:19 AM EDT documented as of this encounter Care Teams Manager Audit Relationship Specialty Start Date End Date Deejay Cooper DO [address] [place] [address] PCP - General Family Medicine 02/24/23 Deejay Cooper DO [address] [place] [address] PCP - [place] [employer] 12/30/24 Deejay Cooper DO [address] [facility] [address] [place] [id number] Family Medicine 02/24/23 documented as of this encounter
--- OUTSIDE RECORDS SUMMARY | 2025-06-28 00:04 | XMS_ITS | Encounter Summary ---
Author Organization [facility] Address [address] [place] [address] Care Team Providers Care Maitre D Name Role Phone Deejay Cooper DO Primary Care Provider [phone] Deejay Cooper DO Unavailable [phone] Deejay Cooper DO Unavailable [phone] Encounter Details Date Type Department Care Team (Late st Contact Info) Description 03/30/2025 Results Follow-Up [facility] [address] [facility] [address] [place] [phone] Deejay Cooper, [address] [facility] [address] [place] [address] Hemoglobin A1c Social History Tobacco Use Types Packs/Day Years [...] declined 07/25/2024 How often do you attend [facility] or [facility] services? More than 4 times per year 07/25/2024 Do you belong to any clubs o r organizations such as cheondoism groups, unions, fraternal or athletic groups, or [...] Date Recorded Patient Health Questionnaire-2 Score 0 01/23/2025 [facility] - Occupational Stress Questionnaire Answer Date Recorded [...] any time in the past 12 m ont, were you homeless or living in a senior care (including now)? No 07/25/2024 Sex and Gender [...] [facility] [address] [facility] [address] [place] [address] Nathanael Prescott PTA 07/10/2025 8:00 AM EDT Office Visit [facility] [address] [place] [address] Santhosh Marte MD [address] [facility] [address] [address] 07/14/2025 8:00 AM EDT Office Visit [facility] [address] [place] [address] Mike López, DO [address] [place] [address] 07/17/2025 8:00 AM EDT Treatment [facility] [address] [place] [address] Nathanael Prescott, BRIDGETT 07/24/2025 11:40 AM EDT Office Visit [facility] [address] [place] [phone] Deejay Cooper DO [address] [place] [address] documented as of this encounter Visit Diagnoses Not on filedocumented in this encounter Additional Health Concerns Assessment Noted Time PHQ-9 Depression Total Score: 18 023 11:19 AM EDT documented as of this encounter Care Teams Maitre D Relationship Specialty Start Date End Date Deejay Cooper DO [address] [place] [address] PCP - General Family Medicine 02/24/23 Deejay Cooper DO [address] [place] [address] PCP - [facility] 12/30/24 Deejay Cooper DO [address] [place] [address] Family Medicine 02/24/23 documented as of this encounter
--- NOTE | 2025-06-28 00:38 | ED_ITS ---
HPI - Weakness General Chief complaint: Weakness Stated complaint: WEAKNESS Time Seen by Provider: 06/28/25 00:26 Source: patient Mode of arrival: ambulance Limitations: no limitations History of Present Illness HPI Narrative: history of adrenal insufficiency, past C-spine surgery. Still has bulging disc in his neck and myelopathy that is mild . Affects left upper ext the most. Conservative management at this time. Recent left shoulder surgery. found him sleeping in the chair. Woke him up and he complaint of weakness and diplopia. side by side. This was about an hour ago. Still present but improved some. 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) zolpidem 10 mg tablet mg 06/28/25 Allergies Allergy/AdvReac Type Severity Reaction Status Date / Time latex AdvReac Mild Rash Verified 06/28/25 00:06 Review of Systems ROS Status of ROS 10 or more systems reviewed and unremark able except as noted in history and below PFSH PFSH Social History Little interest or pleasure in doing things: not at all Feeling down, depressed, or hopeless: not at all Exam Constitutional Vital Signs, click to edit/add: Last Vital Signs Temp 98.2 F 06/27/25 23:58 Pulse 87 06/27/25 23:58 Resp 16 06/27/25 23:58 BP 139/81 06/28/25 04:30 Pulse Ox 93 L 06/28/25 01:54 O2 Del Method Room Air 06/28/25 00:34 Common normals: no apparent distress, average body habitus, oriented x3, no limitations, healthy appearing, alert and well nourished [facility] Common normals: normocephalic and head/scalp atraumatic Eye Common normals: PERRL, EOMs intact bilaterally and conjunctivae normal Respiratory Common normals: normal respiratory effort, no retractions, no use of accessory muscles and clear to auscultation bilaterally Cardio Common normals: regular rate, regular rhythm, S1 normal heart sound and S2 normal heart sound GI Common normals: Normal to inspection, nondistended, normoactive bowel sounds present, soft to palpation and non-tender Extremity Common normals: normal to inspection and full ROM Neuro Common normals: oriented x3, CN's II-XII intact bilaterally, moves all extremities, no focal motor deficits and no sensory deficits noted Psych Appearance: grossly normal Course Vital Signs Vital signs: Vital Signs Temperature 98.2 F 06/27/25 23:58 Pulse Rate 87 06/27/25 23:58 Respiratory Rate 16 06/27/25 23:58 Blood Pressure 137/84 06/27/25 23:58 Pulse Oximetry 95 06/27/25 23:58 Oxygen Delivery Method Room Air 06/27/25 23:58 Temperature 98.2 F 06/27/25 23:58 Pulse Rate 87 06/27/25 23:58 Respiratory Rate 16 06/27/25 23:58 Blood Pressure 139/81 06/28/25 04:30 Pulse Oximetry 93 L 06/28/25 01:54 Oxygen Delivery Method Room Air 06/28/25 00:34 MDM - Weakness MDM Narrative Medical decision making narrative: past history of adrenal insufficiency , cervical myelopathy, HTN. found him asleep in the chair tonight. woke up and he was generally weak. He also complained of diplopia. Arrived to the department an hour later and still had diplopia that improved some. feels his words are slurred. He feels there is some what of a struggle with his tongue when talking. Given Hydrocortisone 100mg IV and his energy improved immeidately. Diplopia remains but is also improved. States it is short lasting now when he looks at something. CT noncontrast neg. No acute process [facility]y paged discussed with stroke neurologist who recommended CTA brain. also felt the patient could be admitted here if CTA brain neg or be discharged. CTA brain and neck completely normal without any findings of significant stenosis. Patient re examined and is feeling better and speaking normally. No recurrence of diplopia. His symptoms all seem to improve after he was given hydrocortisone. He elected to be discharged. States he already has a follow up appointment with Neurology. 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 Lab Data Labs: Lab Results 06/28/25 06/28/25 06/28/25 Range/Units 00:02 00:05 02:00 WBC 5.3 (4.0-11.0) 10^3/uL RBC 4.40 L (4.70-6.10) 10^6/uL Hgb 13.7 L (14.0-18.0) g/dL Hct 40.4 L (42.0-54.0) % MCV 91.8 (80.0-94.0) fL MCH 31.1 (25.9-34.0) pg MCHC 33.9 (29.9-35.2) g/dL RDW 12.8 (11.0-15.0) % Plt Count 181 (150-450) 10^3/uL MPV 10.6 (9.5-13.5) fL Neut % (Auto) 38.9 L (43.0-75.0) % Lymph % (Auto) 42.2 (20.5-60.0) % [place] % (Auto) 8.7 (1.7-12.0) % Eos % (Auto) 8.3 H (0.9-7.0) % Baso % (Auto) 0.8 (0.2-2.0) % Neut # (Auto) 2.1 (1.4-6.5) 10^3/uL Lymph # (Auto) 2.2 (1.2-3.8) 10^3/uL [place] # (Auto) 0.5 (0.3-0.8) 10^3/uL Eos # (Auto) 0.4 (0.0-0.7) 10^3/uL Baso # (Auto) 0.0 (0.0-0.1) 10^3/uL Abs Immat Gran (auto) 0.06 H (0.00-0.03) 10^3/uL Imm/Tot Granulo (auto) 1.1 H (0.0-0.5) % Sodium 145 (136-145) mmol/L Potassium 4.2 (3.5-5.1) mmol/L Chloride 112 H (98-107) mmol/L Carbon Dioxide 20.5 L (21.0-32.0) mmol/L Anion Gap 16.7 BUN 13.0 (7.0-18.0) mg/dL Creatinine 0.89 (0.70-1.30) mg/dL Est GFR ( Amer) >60 (>=60 mL/min/1.73m^2) Est GFR (Non-Af Amer) >60 (>=60 mL/min/1.73m^2) BUN/Creatinine Ratio 14.6 Glucose 99 (74-106) mg/dL Calcium 8.3 L (8.5-10.1) mg/dL Troponin I High Sens 4.2 (4.0-76.1) pg/mL TSH & Free T4 Interp 0.953 (0.358-3.740) uIU/mL Urine Color Yellow (YELLOW) Urine Clarity Clear (CLEAR) Urine pH 6.0 (5.0-9.0) Ur Specific [place] 1.025 (1.005-1.025) Urine Protein Negative (NEG/TRACE) mg/dL Urine Glucose (UA) Negative (NEGATIVE) mg/dL Urine Ketones 15 A (NEGATIVE) mg/dL Urine Occult Blood Negative (NEGATIVE) Urine Nitrite Negative (NEGATIVE) Urine Bilirubin Negative (NEGATIVE) Urine Urobilinogen 0.2 (0.2-1.0) EU/dL Ur Leukocyte Esterase Negative (NEGATIVE) Urine RBC None seen (0-2) #/HPF Urine WBC 0-2 A (NONE SEEN) #/HPF Ur Squamous Epith Cells Rare (NONE/RARE) #/LPF Urine Crystals None seen (None Seen) #/HPF Urine Bacteria None seen (NONE SEEN) #/HPF Urine Casts None seen (NONE SEEN) #/LPF Urine Mucus None seen (NONE SEEN) POC Glucose 85 (74-106) mg/dL Discharge Plan Discharge Chief Complaint: Weakness Clinical Impression: Diplopia, Adrenal insufficiency Patient Disposition: Home, Self-Care Prescriptions / Home Meds: No Action celecoxib 200 mg capsule liothyronine 5 mcg tablet gemfibrozil 600 mg tablet orphenadrine citrate 100 mg tablet extended release PO hydrocortisone 10 mg tablet zolpidem 10 mg tablet losartan 100 mg tablet pregabalin 50 mg capsule 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
[2025-06-28 00:41] LABS: Hematocrit 40.4 % (42.0-54.0); Hemoglobin 13.7 g/dL (14.0-18.0); Immature Granulocytes Abs Auto 0.06 10^3/uL (0.00-0.03); Immature Granulocytes Pct Auto 1.1 % (0.0-0.5); Lymphocytes Absolute Auto 2.2 10^3/uL (1.2-3.8); Mean Corpuscular HGB Conc 33.9 g/dL (29.9-35.2); Mean Corpuscular Hemoglobin 31.1 pg (25.9-34.0); Mean Corpuscular Volume 91.8 fL (80.0-94.0); Platelet Count 181 10^3/uL (150-450); Red Blood Count 4.40 10^6/uL (4.70-6.10); White Blood Count 5.3 10^3/uL (4.0-11.0)
[2025-06-28] MEDS: HYDROCORTISONE SODIUM SUCC PF 100 MG/2 ML VIAL IVP (00:46)
[2025-06-28 01:00] LABS: Anion Gap 16.7; Blood Urea Nitrogen 13.0 mg/dL (7.0-18.0); Calcium 8.3 mg/dL (8.5-10.1); Carbon Dioxide 20.5 mmol/L (21.0-32.0); Chloride 112 mmol/L (98-107); Estimated GFR (African America >60 (>=60 mL/min/1.73m^2); Estimated GFR (Non-African Ame >60 (>=60 mL/min/1.73m^2); Glucose 99 mg/dL (74-106); Potassium 4.2 mmol/L (3.5-5.1); Sodium 145 mmol/L (136-145); TSH W/ REFLEX FT4 0.953 uIU/mL (0.358-3.740)
[2025-06-28 02:13] LABS: Glucose Urine UA NEGATIVE (NEGATIVE)
[2025-06-28 02:17] LABS: Cast Seen? NONE SEEN #/LPF (NONE SEEN); Crystals Seen? None Seen #/HPF (None Seen)
--- NOTE | 2025-06-28 05:27 | ECG_ITS ---
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 Measurements Intervals [place] Rate: 86 P: 61 [place]: 140 QRS: 57 QRSD: 76 T: 54 QT: 360 QTc: 403 Interpretive Statements 1100 Sinus rhythm 9110 normal ECG No previous ECG available for comparison Electronically Signed On 06-28-2025 10:28:57 EDT by RICHMOND BATISTA M.D.
== END 2025-06-28 05:35 | disposition home or self-care (01) ==
PROVIDERS: Emergency Provider Internal Medicine; PCP Family Medicine
DX: H53.2 Diplopia (principal); E27.40 Unspecified adrenocortical insufficiency; M50.00 Cervical disc disorder with myelopathy, unspecified cervical region; I10 Essential (primary) hypertension
CPT/HCPCS: 36415; 70450; 70496; 70498; 80048; 81001; 84443; 84484; 85025; 93005; 96374; 99285; J1720; Q9967